=== PATIENT | male | born 1965 | race Caucasian/White ===

== ENCOUNTER 2017-11-26 11:30 | Emergency (ER) | payer SELFPAY ==
[2017-11-26 11:50] VITALS: BP 151/98
--- NOTE | 2017-11-26 12:06 | UC ---
UC General HPI - HPI Summary HPI Summary: Patient urgent care today, requesting Ultram and gabapentin refilled. Patient states he just got back from [place] and he needed his medications patient states that he call Dr. Roper's AND "they couldn't get him in for a while.' and they advised him to come here to the urgent care. Patient I-stopped and found to have an Rx yesterday of Klonopin 1 mg, 90 tablets dispensed.. 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 - History of Current Complaint Chief Complaint: UCBackPain Stated Complaint: BACK PAIN Time Seen by Provider: 11/26/17 11:52 Hx Obtained From: Patient Onset/Duration: Other - chronic pain Timing: Constant Pain Intensity: 9 Pain Location at: low back Pain Radiates to: no - Allergy/Home Medications Allergies/Adverse Reactions: Allergies Allergy/AdvReac Type Severity Reaction Status Date / Time No Known Allergies Allergy Verified 11/26/17 11:51 PMH/Surg Hx/FS Hx/Imm Hx Previously Healthy: No - chronic pain Psychological History: Anxiety Other History Of: Negative For: HIV, Hepatitis B, Hepatitis C, Anticoagulant Therapy - Surgical History Surgical History: Yes Surgery Procedure, Year, and Place: HERNIA REPAIR 10 YEARS AGO - Family History Known Family History: Positive: None, Cardiac Disease - Mother, Other - Lung cancer (father) Negative: Seizure Disorder, Blood Disorder Family History: NON CONTRIBUTORY - Social History Occupation: Unemployed Lives: Alone Alcohol Use: Occasionally Substance Use Type: Marijuana Smoking Status (MU): Former Smoker Type: Cigarettes Amount Used/How Often: quit jun 2015 Household Exposure Type: Cigarettes Review of Systems Constitutional: Negative Skin: Negative Eyes: Negative ENT: Negative Respiratory: Negative Cardiovascular: Negative Gastrointestinal: Negative Genitourinary: Negative Motor: Negative Neurovascular: Negative Musculoskeletal: Arthralgia - low back, Myalgia - low back Neurological: Negative Psychological: Negative Is Patient Immunocompromised?: No All Other Systems Reviewed And Are Negative: Yes Physical Exam Triage Information Reviewed: Yes Appearance: Well-Appearing, No Pain Distress, Well-Nourished Vital Signs: Initial Vital Signs Temp 98.2 F 11/26/17 11:46 Pulse 107 11/26/17 11:46 Resp 18 11/26/17 11:46 BP 151/98 11/26/17 11:46 Pulse Ox 100 11/26/17 11:46 Vital Signs Reviewed: Yes Eye Exam: Normal Eyes: Positive: Conjunctiva Clear ENT Exam: Normal ENT: Positive: Normal ENT inspection, Hearing grossly normal. Negative: Nasal congestion, Nasal drainage, Trismus, Muffled voice, Hoarse voice Dental Exam: Normal Neck exam: Normal Neck: Positive: Supple, Nontender, No Lymphadenopathy Respiratory Exam: Normal Respiratory: Positive: Chest non-tender, Lungs clear, Normal breath sounds, No respiratory distress, No accessory muscle use Cardiovascular Exam: Normal Cardiovascular: Positive: RRR, No Murmur, Pulses Normal, Brisk Capillary Refill Musculoskeletal Exam: Normal Musculoskeletal: Positive: Strength Intact, ROM Intact, No Edema - Family Neurological Exam: Normal Neurological: Positive: Alert, Muscle Tone Normal Psychological Exam: Normal Psychological: Positive: Normal Response To Family, Age Appropriate Behavior, Consolable Skin Exam: Normal Course/Dx - Course Course Of Treatment: Call made to Dr. Roper's office. Patient has an appointment for today at 1:30 so that one person can manage his chronic pain appropriately - Differential Dx - Multi-Symptom Provider Diagnoses: Chronic painchronic low back pain Discharge - Sign-Out/Discharge Documenting (check all that apply): Discharge/Admit/Transfer - Discharge Plan Condition: Stable Disposition: HOME Patient Education Materials: Chronic Back Pain (ED), Lower Back Exercises (ED) Referrals: Todd Bravo MD [Primary Care Provider] - 11/26/17 1:30 pm - Billing Disposition and Condition Condition: STABLE Disposition: Home
== END 2017-11-26 12:20 | disposition home or self-care (01) ==
LOC: UCEAST 11:30
DX: G89.29 Other chronic pain (principal); M54.5 Low back pain; F41.9 Anxiety disorder, unspecified; Z87.891 Personal history of nicotine dependence; Z82.49 Family history of ischemic heart disease and other diseases of the circulatory system; Z80.1 Family history of malignant neoplasm of trachea, bronchus and lung
CPT/HCPCS: 99211; G0463

== ENCOUNTER 2018-03-19 14:01 | Emergency (ER) | payer MEDICAID ==
--- NOTE | 2018-03-19 14:50 | UC ---
Respiratory Complaint HPI - History of Current Complaint Chief Complaint: EDUpperRespComplaint Stated Complaint: COUGH/ANXIETY Time Seen by Provider: 03/19/18 14:36 Hx Obtained From: Patient Pain Intensity: 1 - Allergies/Home Medications Allergies/Adverse Reactions: Allergies Allergy/AdvReac Type Severity Reaction Status Date / Time No Known Allergies Allergy Verified 11/26/17 11:51 Home Medications: Home Medications Escitalopram (NF) [Lexapro 10 mg (NF)] 10 mg PO DAILY 03/19/18 [History Confirmed 03/19/18] PMH/Surg Hx/FS Hx/Imm Hx Other History Of: Negative For: HIV, Hepatitis B, Hepatitis C, Anticoagulant Therapy - Surgical History Surgical History: Yes Surgery Procedure, Year, and Place: HERNIA REPAIR 10 YEARS AGO - Family History Known Family History: Positive: None, Cardiac Disease - Mother, Other - Lung cancer (father) Negative: Seizure Disorder, Blood Disorder Family History: NON CONTRIBUTORY - Social History Alcohol Use: Weekly Alcohol Amount: "couple of beer after work" Substance Use Type: None Smoking Status (MU): Light Every Day Tobacco Smoker Type: Cigarettes Amount Used/How Often: quit jun 2015 Household Exposure Type: Cigarettes Physical Exam Vital Signs: Initial Vital Signs Temp 97.6 F 03/19/18 14:08 Pulse 89 03/19/18 14:08 Resp 19 03/19/18 14:08 BP 162/100 03/19/18 14:08 Pulse Ox 99 03/19/18 14:08 Diagnostic Evaluation - Laboratory O2 Sat by Pulse Oximetry: 99 Discharge - Discharge Plan Referrals: Todd Bravo MD [Primary Care Provider] -
--- NOTE | 2018-03-19 15:27 | RAD ---
HISTORY: cough, fever COMPARISONS: May 03, 2016 VIEWS: 4: Frontal dual-energy and lateral views of the chest. FINDINGS: CARDIOMEDIASTINAL SILHOUETTE: The cardiomediastinal silhouette is normal. PHU: The phu are normal. PLEURA: The costophrenic angles are sharp. No pleural abnormalities are noted. LUNG PARENCHYMA: The lungs are clear. ABDOMEN: The upper abdomen is clear. There is no subphrenic gas. BONES AND SOFT TISSUES: There are remote posttraumatic deformities of the left lower hemithorax. Mild degenerative changes are noted. OTHER: None. IMPRESSION: NO ACTIVE CARDIOPULMONARY DISEASE.
--- OUTSIDE RECORDS SUMMARY | 2018-03-19 15:48 | XMS REPORT ---
:1965 External Reference #:[id number] Author Organization [facility] Address [address] [facility] [address] [place] [address] [place] [address] Phone [phone] Care Team Providers Name Role Phone Todd Bravo MD Primary Care Physician Unavailable Payers Type Date Identification Numbers Payment Provider Subscriber Medicaid Policy Number: [id number] Medicaid Serge Savage Group Name: 1 1 [address] PayID: [id number] [place] [address] Commercial Effective: Policy Number: [place]/[employer] Medicaid Serge Lecek 2013 [id number] Expires: 2017 Group Name: [id number] [address] [address] PayID: [id number] [place] [address] Commercial Effective: Policy Number: [place]/[employer] Medicaid Serge Lecek 2008 [id number] Expires: 2013 PayID: [id number] [address] [address] [place] [address] Workers Compensation Onset: 2014 Policy Number: State Insurance Serge Savage [id number] [facility] PayID: [id number] [address] [address] [place] [address] Problems Date Description Provider Status Onset: 07/20/2014 Chronic low back pain Carri Davis M.D.,FACP Onset: 2015 Sprain of shoulder and upper arm Reginald Cotton M.D. Active Onset: 03/04/2015 Localized, primary Diana Mahmood M.D. Active osteoarthritis of the shoulder region Onset: 03/06/2016 Anxiety disorder Carri Davis M.D.,FACP Onset: 05/11/2016 Ex-smoker Todd Bravo, Active Delphine,FACP Onset: 01/03/2018 Lumbar radiculopathy Hai Tilley M.D. Active Onset: 03/16/2013 Benign essential hypertension Todd Bravo, Inactive Delphine,FACP Inactive: 07/20/2014 Onset: 03/16/2013 Pathological fracture of Todd Bravo, Inactive vertebra M.Delia,FACP Inactive: 05/03/2015 Onset: 09/17/2013 Light cigarette smoker (1-9 Todd Bravo M.D.,FACP Inactive cigs/day) Inactive: 05/11/2016 Onset: 11/11/2014 Closed fracture of two ribs Hai Tilley M.D. Resolved Resolved: 05/03/2015 Family History Date Family Member(s) Problem(s) Comments General Heart Disease Father due to Cancer, Lung () Siblings 1 Social History Type Date Description Comments Marital Status Occupation Disabled Environmental Hazards Negative For Second hand smoke at home Cigarette Use Former Cigarette Smoker quit 06/24/15 ETOH Use 04/17/2015 Consumes 2 beers per day Recreational Drug Use Sporadically uses Marijuana Smoking Light tobacco smoker (10 or fewer cigarettes/day) Exercise Type/Frequency Exercises regularly General Hx Text 1 daughter originally from [facility] Allergies, Adverse Reactions, Alerts Date Description Reaction Status Severity Comments 02/20/2018 Sertraline active intolerant 02/20/2018 Tramadol active seizure 03/16/2013 NKDA inactive Medications Medication Date Status Form Strength Qnty SIG Indications Ordering Provider Lexapro 02/20 Active Tablets 10mg 30tab 1 by mouth Todd s every day Delia Bravo M.D.,FACP Hydrocodone 02/20 Active Tablets 5-325mg 60tab 1 by mouth Todd Bitartrate/Acetam s three times Delia Bravo inophen a day as MGibran,FACRonny needed Baclofen 12/27 Active Tablets 10mg 30tab take 1 M54.16 Hai s tablets by Nasrinra mouth twice , M.D. a day Naproxen 08/23 Active Tablets 500mg 42tab 1 by mouth M65.872 s twice a day Jose Miguel, as needed M.D. Xanax 05/11 Active Tablets 0.5mg 20tab 1 tab 12 h F43.22 s as needed Delia Bravo M.D.,[facility] Viagra 05/03 Active Tablets 50mg 7tabs 1 by mouth N52.1 as needed Delia Bravo M.D.,[facility] Triamcinolone 12/30 Active Cream 0.5% 15g to affected area every D. Shelly, day as M.DEwelina,[facility] needed Gabapentin 03/16 Active Capsules 300mg 180ca take two ps capsules by Delia Bravo, mouth three M.D.,FACP times daily Hydrocodone-Aceta 08/09 Hx Tablets 5-325mg 20tab 1-2 by mouth M67.472 Todd s every 6 D. Shelly, - hours prn. [facility] 10/11 Tylenol With 07/31 Hx Tablets 300-30mg 8tabs 1 tab by M79.672 Manjinder Codeine #3 mouth every Jose Miguel, - 4 hours as M.DEwelina 08/09 needed pain Hydrocodone-Aceta 07/25 Hx Tablets 7.5-325mg 30tab 1 tab by S22.49xA Todd s mouth q6 DEwelina Bravo, - hours as [facility]ina[facility] 08/09 needed pain Sertraline HCL 03/06 Hx Tablets 50mg 30tab 1/2 tab F43.22 s daily for 10 D. Shelly, - days then 1 M.D.,FACP 03/27 by mouth every day Lexapro 01/22 Hx Tablets 20mg 30tab 1 by mouth F43.22 Aric s every day [place], - [employer] 03/06 Xanax 01/22 Hx Tablets 0.25mg 30tab take 1 F43.22 s tablet by Delia Bravo, - mouth twice M.D.,FACP 05/11 a day only as needed; Lorazepam 11/08 Hx Tablets 1mg 10tab 1-2 tab at Unknown s hs as needed - for anxiety 01/22 Diazepam 07/05 Hx Tablets 10mg 10tab 1/2-1 tab po F43.22 s qd prn Willie Farrar M.D.,[facility] 01/22 Diazepam 05/03 Hx Tablets 10mg 10tab 1/2-1 tab po N52.1 s qd prWillie White M.D.,[facility] 07/05 Soma 03/04 Hx Tablets 250mg 40tab 1 tab q8 715.11 Diana s hours by Timoteo, - mouth as M.DEwelina 05/03 needed muscle spasms Skelaxin 02/22 Hx Tablets 800mg 45tab 1 tablet by 719.41 s mouth three [place], - times a day, M.DEwelina 05/03 as needed for muscle contraction Mobic 01/11 Hx Tablets 7.5mg 60tab 1 by mouth s twice a day Yury, - as needed, M.DEwelina 05/03 take with meals [place] 01/11 Hx Tablets 5-325mg 40tab 1-2 by mouth s daily as Yury, - needed M.DEwelina 05/03 Celecoxib 12/30 Hx Capsules 200mg 28cap 1 tab PO bid 840.8 s for 2 wks Delia Bravo, - (work MGibran,[facility] 01/11 injury) Azithromycin 11/11 Hx Tablets 250mg 6tabs 2 tab today 466.0 and then Pachikara - 1tab daily , M.DEwelina 12/29 Prednisone 11/11 Hx Tablets 10mg 30tab 5tabx 466.0 s 2days,4 Pachikara - [id number] , Delphine 12/29 [id number], [id number],1t abxday. Hydrocodone-Aceta 10/08 Hx Tablets 7.5-325mg 20tab 1 tab by 807.02 Weldon min s mouth q6 Pachikara - hours as , Delphine 12/29 needed pain Trazodone HCL 07/20 Hx Tablets 50mg 30tab Take One G47.00 s Tablet By Delia Bravo, - Mouth Every M.DEwelina,[facility] 03/06 Night AT Bedtime Tramadol HCL ER 02/12 Hx Tablets 100mg 90tab 1-2 tabs 724.2 Todd (Biphasic) ER 24HR s twice a day Willie Farrar M.D.,[facility] 07/20 Tramadol HCL 02/12 Hx Tablets 50mg 30tab 1-2 three M54.5 Todd s times a day Delia Bravo, - as needed M.Delia,[facility] 02/20 mdd Chantix Starting 09/17 Hx Tablets 0.5mg X 1mon as directed 780.52 Padma Post Month 11 & 1 mg Delia Bravo, - X 42 M.DEwelina,[facility] 07/20 Lisinopril-Hydroc 09/14 Hx Tablets 10-12.5mg 90tab 1 by mouth Padma Post hlorothiazide s every day Willie Farrar M.D.,[facility] 07/20 Oxycodone/Acetami 09/02 Hx Tablets 7.5-325mg 60tab 1 po qid prn 724.2 Todd nop s Willie Farrar M.D.,[facility] 09/17 Cyclobenzaprine 09/02 Hx Tablets 10mg 30tab take 1 724.2 Todd s tablet tid Delia Bravo, - as needed Delphine,[facility] 09/17 Vitamin D 04/17 Hx Capsules 1000Unit 30cap po qd 275.42 Todd Willie Castro M.D.,[facility] 11/10 Tylenol Extra 03/16 Hx Tablets 500mg 100ta 2 po prn Todd Strength bs Willie Farrar M.D.,[facility] 12/14 Hydrocodone/Aceta 03/16 Hx Tablets 5-325mg 70tab 1 tablet by 724.2 Zeferino upton s mouth four Heena, - times a day Delphine 08/22 as needed Lisinopril/Hydroc 03/16 Hx Tablets 10-12.5mg 30tab take 1 401.1 Padma Post hlorothiazide /2012 s tablet by Delia Bravo, - mouth every M.D.,FACP 09/14 morning Ibuprofen 03/16 Hx Tablets 400mg 100ta take one Todd bs tablet by Delia Bravo, - mouth four M.D.,FACP 07/20 times daily /2014 as needed Chlordiazepoxide Hx Capsules 25mg pt takes two Unknown HCL /0000 tabs in am - and two tabs 09/11 in pm Medications Administered in Office Medication Date Status Form Strength Qnty SIG Indications Ordering Provider Depomedrol Administered Injection Diana 80MG 015 Delphine Mahmood Immunizations CPT Code Status Date Vaccine Lot # [id number] Given 03/16/2013 Flu Vaccine Split Virus Preservative Free For [id number] Indiv [id number] Older Vital Signs Date Vital Result Comment 02/20/2018 Height 68 inches 5'8" Weight 135.00 lb Heart Rate 85 /min BP Systolic Sitting 160 mmHg BP Diastolic Sitting 90 mmHg Body Temperature 97.3 F O2 % BldC Oximetry 98 % BMI (Body Mass Index) 20.5 kg/m2 01/03/2018 Height 68 inches 5'8" Weight 142.00 lb Heart Rate 74 /min BP Systolic Sitting 138 mmHg BP Diastolic Sitting 72 mmHg Body Temperature 96.6 F O2 % BldC Oximetry 98 % BMI (Body Mass Index) 21.6 kg/m2 12/27/2017 Height 68 inches 5'8" Weight 148.19 lb Heart Rate 70 /min BP Systolic Sitting 142 mmHg BP Diastolic Sitting 90 mmHg O2 % BldC Oximetry 99 % BMI (Body Mass Index) 22.5 kg/m2 11/26/2017 Height 68 inches 5'8" Weight 148.00 lb Heart Rate 92 /min BP Systolic Sitting 140 mmHg BP Diastolic Sitting 90 mmHg Body Temperature 97.8 F O2 % BldC Oximetry 98 % BMI (Body Mass Index) 22.5 kg/m2 09/11/2016 Weight 161.75 lb Heart Rate 76 /min BP Systolic Sitting 134 mmHg BP Diastolic Sitting 80 mmHg Body Temperature 97.9 F O2 % BldC Oximetry 98 % 08/23/2016 Height 67 inches 5'7" Weight 159.00 lb Heart Rate 82 /min BP Systolic 126 mmHg BP Diastolic 88 mmHg Respiratory Rate 19 /min Pain Level 9 BMI (Body Mass Index) 24.9 kg/m2 07/31/2016 Height 67 inches 5'7" Weight 159.00 lb Heart Rate 80 /min BP Systolic 119 mmHg BP Diastolic 90 mmHg Respiratory Rate 18 /min Pain Level 10 BMI (Body Mass Index) 24.9 kg/m2 07/25/2016 Weight 160.50 lb Heart Rate 66 /min BP Systolic Sitting 134 mmHg BP Diastolic Sitting 80 mmHg Body Temperature 98.1 F O2 % BldC Oximetry 99 % 05/11/2016 Height 56 inches 4'8" Weight 155.50 lb Heart Rate 102 /min BP Systolic Sitting 138 mmHg BP Diastolic Sitting 81 mmHg Body Temperature 97.3 F O2 % BldC Oximetry 98 % BMI (Body Mass Index) 34.9 kg/m2 04/10/2016 Weight 149.00 lb with shoes Heart Rate 75 /min BP Systolic Sitting 130 mmHg BP Diastolic Sitting 90 mmHg O2 % BldC Oximetry 98 % 03/27/2016 Weight 150.00 lb Heart Rate 86 /min BP Systolic Sitting 150 mmHg BP Diastolic Sitting 90 mmHg Respiratory Rate 15 /min Body Temperature 98.4 F O2 % BldC Oximetry 99 % 03/06/2016 Weight 148.00 lb Heart Rate 76 /min BP Systolic Sitting 150 mmHg BP Diastolic Sitting 88 mmHg Respiratory Rate 15 /min Body Temperature 98.3 F O2 % BldC Oximetry 98 % 01/23/2016 Height 56 inches 4'8" Weight 146.00 lb Heart Rate 101 /min BP Systolic 146 mmHg BP Diastolic 82 mmHg Body Temperature 97.9 F O2 % BldC Oximetry 99 % BMI (Body Mass Index) 32.7 kg/m2 07/05/2015 Height 56 inches 4'8" Weight 149.00 lb Heart Rate 81 /min BP Systolic 134 mmHg BP Diastolic 90 mmHg Body Temperature 97.6 F O2 % BldC Oximetry 99 % BMI (Body Mass Index) 33.4 kg/m2 05/03/2015 Weight 155.00 lb Heart Rate 77 /min BP Systolic Sitting 136 mmHg BP Diastolic Sitting 90 mmHg Body Temperature 96.4 F 03/04/2015 Height 66.5 inches 5'6.50" Weight 160.00 lb Pain Level 7 BMI (Body Mass Index) 25.4 kg/m2 02/22/2015 Height 66.5 inches 5'6.50" Weight 189.12 lb Heart Rate 91 /min BP Systolic Sitting 130 mmHg BP Diastolic Sitting 82 mmHg Body Temperature 97.7 F O2 % BldC Oximetry 98 % BMI (Body Mass Index) 30.1 kg/m2 2015 Height 66.5 inches 5'6.50" Weight 164.00 lb Heart Rate 93 /min BP Systolic Sitting 137 mmHg BP Diastolic Sitting 96 mmHg Respiratory Rate 18 /min Pain Level 9 BMI (Body Mass Index) 26.1 kg/m2 12/30/2014 Height 66.5 inches 5'6.50" Weight 164.12 lb Heart Rate 100 /min BP Systolic Sitting 118 mmHg BP Diastolic Sitting 62 mmHg Body Temperature 97.8 F O2 % BldC Oximetry 98 % BMI (Body Mass Index) 26.1 kg/m2 11/11/2014 Weight 155.00 lb Heart Rate 86 /min BP Systolic Sitting 130 mmHg BP Diastolic Sitting 92 mmHg Body Temperature 97.8 F O2 % BldC Oximetry 98 % 10/08/2014 Weight 156.00 lb Heart Rate 94 /min BP Systolic Sitting 148 mmHg BP Diastolic Sitting 94 mmHg Body Temperature 97.4 F O2 % BldC Oximetry 99 % 07/20/2014 Weight 165.75 lb Heart Rate 96 /min BP Systolic Sitting 126 mmHg BP Diastolic Sitting 88 mmHg Body Temperature 97.8 F 02/12/2014 Weight 172.00 lb Heart Rate 56 /min BP Systolic Sitting 120 mmHg BP Diastolic Sitting 82 mmHg Body Temperature 96.0 F 12/14/2013 Height 66.5 inches 5'6.50" Weight 165.00 lb Heart Rate 88 /min BP Systolic Sitting 134 mmHg BP Diastolic Sitting 86 mmHg Body Temperature 98.2 F BMI (Body Mass Index) 26.2 kg/m2 09/17/2013 Height 6.5 inches 0'6.50" Weight 165.50 lb Heart Rate 68 /min BP Systolic Sitting 100 mmHg BP Diastolic Sitting 60 mmHg Body Temperature 98.0 F BMI (Body Mass Index) 2753.8 kg/m2 09/02/2013 Weight 168.00 lb Heart Rate 76 /min BP Systolic Sitting 112 mmHg BP Diastolic Sitting 72 mmHg Body Temperature 97.6 F 04/17/2013 Weight 164.00 lb Heart Rate 100 /min BP Systolic Sitting 124 mmHg BP Diastolic Sitting 78 mmHg 03/16/2013 Height 66.25 inches 5'6.25" Weight 156.50 lb Heart Rate 110 /min BP Systolic Sitting 152 mmHg BP Diastolic Sitting 92 mmHg BMI (Body Mass Index) 25.1 kg/m2 Results Test Date Test Result H/L Range Note Lipid Profile (Trig/Chol/HDL) 02/17/2018 Triglycerides 86 mg/dL 1 Cholesterol 191 mg/dL 2 HDL Cholesterol 81.9 mg/dL 3 LDL Cholesterol 92 mg/dL 4 Basic Metabolic Panel 02/17/2018 Sodium 137 mmol/L 135-145 Potassium 4.3 mmol/L 3.5-5.0 Chloride 107 mmol/L 101-111 Co2 Carbon Dioxide 25 mmol/L 22-32 Anion Gap 5 mmol/L 2-11 Glucose 94 mg/dL 70-100 Blood Urea Nitrogen 14 mg/dL 6-24 Creatinine 0.91 mg/dL 0.67-1.17 BUN/Creatinine Ratio 15.4 8-20 Calcium 9.3 mg/dL 8.6-10.3 Egfr Non- 87.2 >60 Egfr 105.5 >60 5 CBC Auto Diff 01/23/2016 White Blood Count 7.2 10^3/uL 3.5-10.8 Red Blood Count 5.15 10^6/uL 4.0-5.4 Hemoglobin 15.3 g/dL 14.0-18.0 Hematocrit 44 % 42-52 Mean Corpuscular Volume 86 fL 80-94 Mean Corpuscular Hemoglobin 30 pg 27-31 Mean Corpuscular HGB Conc 35 g/dL 31-36 Red Cell Distribution Width 14 % 10.5-15 Platelet Count 209 10^3/uL 150-450 Mean Platelet Volume 8 um3 7.4-10.4 Abs Neutrophils 5.5 10^3/uL 1.5-7.7 Abs Lymphocytes 1.2 10^3/uL 1.0-4.8 Abs Monocytes 0.4 10^3/uL 0-0.8 Abs Eosinophils 0.1 10^3/uL 0-0.6 Abs Basophils 0.1 10^3/uL 0-0.2 Abs Nucleated RBC 0.02 10^3/uL Granulocyte % 75.7 % 38-83 Lymphocyte % 17.2 % Low 25-47 Monocyte % 5.1 % 1-9 Eosinophil % 1.0 % 0-6 Basophil % 1.0 % 0-2 Nucleated Red Blood Cells % 0.3 Urinalysis Profile 01/23/2016 Urine Color Yellow Urine Appearance Clear Urine Specific [place] 1.015 1.010-1.030 Urine pH 7.0 5-9 Urine Urobilinogen Negative Negative Urine Ketones 1+ Negative Urine Protein Negative Negative Urine Leukocytes Negative Negative Urine Blood Negative Negative Urine Nitrite Negative Negative Urine Bilirubin Negative Negative Urine Glucose Negative Negative Urine Drug SCR ED & 01/23/2016 Amphetamine Ur Screen None Detected None Detect Pain Clinic Barbiturates Urine Screen None Detected None Detect Benzodiazepine Urine Screen Presumptive Posi <SEE NOTE> None Detect 6 Urine Cannabinoids Screen Presumptive Posi <SEE NOTE> None Detect 7 Urine Cocaine Screen None Detected None Detect Urine Opiates Screen None Detected None Detect Urine Phencyclidine Screen None Detected None Detect 8 Comp Metabolic Panel 01/23/2016 Sodium 136 mmol/L 133-145 Potassium 3.8 mmol/L 3.5-5.0 Chloride 104 mmol/L 101-111 Co2 Carbon Dioxide 20 mmol/L Low 22-32 Anion Gap 12 mmol/L High 2-11 Glucose 94 mg/dL 70-100 Blood Urea Nitrogen 13 mg/dL 6-24 Creatinine 0.93 mg/dL 0.67-1.17 BUN/Creatinine Ratio 14.0 8-20 Calcium 9.3 mg/dL 8.6-10.3 Total Protein 7.4 g/dL 6.4-8.9 Albumin 4.2 g/dL 3.2-5.2 Globulin 3.2 g/dL 2-4 Albumin/Globulin Ratio 1.3 1-3 Total Bilirubin 1.00 mg/dL 0.2-1.0 Alkaline Phosphatase 62 U/L 34-104 Alt 24 U/L 7-52 Ast 31 U/L 13-39 Egfr Non- 85.7 >60 Egfr 110.2 >60 9 Laboratory test finding 01/23/2016 Troponin-I (TnI) 0.00 ng/mL <0.03 10 Acetaminophen < 15 g/mL 11 Alcohol < 10 mg/dL <10 Salicylate < 2.50 mg/dL <30 TSH (Thyroid Stim Horm) 0.52 mcIU/mL 0.34-5.60 Urine Drug SCR ED & 01/22/2016 Amphetamine Ur Screen None Detected None Detect Pain Clinic Barbiturates Urine Screen None Detected None Detect Benzodiazepine Urine Screen None Detected None Detect Urine Cannabinoids Screen Presumptive Posi <SEE NOTE> None Detect 12 Urine Cocaine Screen None Detected None Detect Urine Opiates Screen None Detected None Detect Urine Phencyclidine Screen None Detected None Detect 13 Urinalysis Profile 01/22/2016 Urine Color Yellow Urine Appearance Clear Urine Specific [place] 1.016 1.010-1.030 Urine pH 5.0 5-9 Urine Urobilinogen Negative Negative Urine Ketones Negative Negative Urine Protein Negative Negative Urine Leukocytes Negative Negative Urine Blood Negative Negative Urine Nitrite Negative Negative Urine Bilirubin Negative Negative Urine Glucose Negative Negative Laboratory test finding 08/27/2015 Rapid Influenza A B SEE RESULT BELOW 14 Antigen Rapid Strep A SEE RESULT BELOW 15 Rapid Influenza A & B 08/27/2015 Influenza A Molecular POSITIVE Negative 16 Molecular Influenza B Molecular NEGATIVE Negative Laboratory test finding 08/27/2015 Rapid Strep Molecular Negative Negative 17 Throat-Beta Strept SEE RESULT BELOW 18 CBC Auto Diff 02/25/2015 White Blood Count 6.3 10^3/uL 4.8-10.8 Red Blood Count 4.65 10^6/uL 4.0-5.4 Hemoglobin 13.5 g/dL Low 14.0-18.0 Hematocrit 40 % Low 42-52 Mean Corpuscular Volume 86 fL 80-94 Mean Corpuscular Hemoglobin 29 pg 27-31 Mean Corpuscular HGB Conc 34 g/dL 31-36 Red Cell Distribution Width 13 % 10.5-15 Platelet Count 200 10^3/uL 150-450 Mean Platelet Volume 8 um3 7.4-10.4 Abs Neutrophils 4.6 10^3/uL 1.5-7.7 Abs Lymphocytes 1.2 10^3/uL 1.0-4.8 Abs Monocytes 0.3 10^3/uL 0-0.8 Abs Eosinophils 0.1 10^3/uL 0-0.6 Abs Basophils 0.1 10^3/uL 0-0.2 Abs Nucleated RBC 0 10^3/uL Granulocyte % 73.4 % 38-83 Lymphocyte % 19.0 % Low 25-47 Monocyte % 5.1 % 1-9 Eosinophil % 1.5 % 0-6 Basophil % 1.0 % 0-2 Nucleated Red Blood Cells % 0 Urinalysis Profile 02/25/2015 Urine Color Yellow Urine Appearance Clear Urine Specific Comstock 1.012 1.010-1.030 Urine pH 7.0 5-9 Urine Urobilinogen Negative Negative Urine Ketones Negative Negative Urine Protein Negative Negative Urine Leukocytes Negative Negative Urine Blood Negative Negative Urine Nitrite Negative Negative Urine Bilirubin Negative Negative Urine Glucose Negative Negative Laboratory test finding 02/25/2015 Lactic Acid 0.9 mmol/L 0.5-2.2 Troponin-I (TnI) 0.00 ng/mL <0.03 19 TSH (Thyroid Stim Horm) 0.41 ?IU/mL 0.34-5.60 Comp Metabolic Panel 02/25/2015 Sodium 130 mmol/L Low 133-145 Potassium 3.8 mmol/L 3.5-5.0 Chloride 98 mmol/L Low 101-111 Glucose 120 mg/dL High 70-100 Blood Urea Nitrogen 16 mg/dL 6-24 Calcium 9.1 mg/dL 8.6-10.3 Total Protein 6.6 g/dL 6.4-8.9 Albumin 4.2 g/dL 3.2-5.2 Globulin 2.4 g/dL 2-4 Albumin/Globulin Ratio 1.8 1-3 Total Bilirubin 0.50 mg/dL 0.2-1.0 Alkaline Phosphatase 70 U/L 34-104 Alt 27 U/L 7-52 Ast 33 U/L 13-39 Co2 Carbon Dioxide 26 mmol/L 22-32 Anion Gap 6 mmol/L 2-11 Creatinine 1.11 mg/dL 0.67-1.17 BUN/Creatinine Ratio 14.4 8-20 Egfr Non- 70.1 >60 Egfr 90.2 >60 20 Laboratory test finding 02/25/2015 Magnesium 2.1 mg/dL 1.9-2.7 Laboratory test finding 03/24/2013 PSA Diagnostic 0.4 ng/mL 0-4.0 21 Basic Metabolic Panel 03/24/2013 Sodium 134 mmol/L 133-145 Potassium 3.8 mmol/L 3.5-5.0 Chloride 105 mmol/L 101-111 Co2 Carbon Dioxide 20.0 mmol/L Low 22-32 Anion Gap 9.0 mmol/L 2-11 Glucose 80 mg/dL 70-100 Blood Urea Nitrogen 15 mg/dL 6-24 Creatinine 1.10 mg/dL 0.50-1.40 BUN/Creatinine Ratio 13.6 8-20 Calcium 10.0 mg/dL High 8.1-9.9 Egfr Non- 71.4 >60 Egfr 91.9 >60 22 Laboratory test finding 03/24/2013 Erythrocyte Sed Rate 8 mm/Hr 0-14 CBC Auto Diff 03/24/2013 White Blood Count 7.8 10^3/uL 4.8-10.8 Red Blood Count 4.89 10^6/uL 4.0-5.4 Hemoglobin 14.3 g/dL 14.0-18.0 Hematocrit 44 % 42-52 Mean Corpuscular Volume 89 fL 80-94 Mean Corpuscular Hemoglobin 29 pg 27-31 Mean Corpuscular HGB Conc 33 g/dL 31-36 Red Cell Distribution Width 13 % 10.5-15 Platelet Count 210 10^3/uL 150-450 Mean Platelet Volume 10 um3 7.4-10.4 Abs Neutrophils 4.6 10^3/uL 1.5-7.7 Abs Lymphocytes 2.3 10^3/uL 1.0-4.8 Abs Monocytes 0.5 10^3/uL 0-0.8 Abs Eosinophils 0.2 10^3/uL 0-0.6 Abs Basophils 0.1 10^3/uL 0-0.2 Abs Nucleated RBC 0.01 10^3/uL Granulocyte % 59.8 % 38-83 Lymphocyte % 29.3 % 25-47 Monocyte % 6.4 % 1-9 Eosinophil % 3.2 % 0-6 Basophil % 1.3 % 0-2 Nucleated Red Blood Cells % 0.1 Laboratory test finding 03/24/2013 TSH (Thyroid Stimulating 0.39 miu/mL 0.34-5.60 Horm) Testosterone 290.0 ng/dL 175-781 Protein Electrophoresis 03/24/2013 Total Protein(Pep) 7.7 g/dL 6.3 - 7.9 Albumin 4.2 g/dL 3.4-4.7 Alpha-1 Globulin 0.2 g/dL 0.1-0.3 Alpha-2 Globulin 1.0 g/dL 0.6-1.0 Beta Globulin 1.2 g/dL 0.7-1.2 Gamma Globulin 1.1 g/dL 0.6-1.6 Albumin/Globulin Ratio 1.19 Impression See Comment 23 1 Desirable: <150 Borderline High: 150-199 High: 200-499 Very High: >500 2 Desirable: <200 Borderline High: 200-239 High: >239 3 Low: <40 Desirable: 40-60 High: >60 4 Desirable: <100 Near Optimal: 100-129 Borderline High: 130-159 High: 160-189 Very High: >189 5 Because ethnic data is not always readily available, this report includes an eGFR for both -Americans and non- Americans. The National Kidney Disease Education Program (NKDEP) does not endorse the use of the MDRD equation for patients that are not between the ages of 18 and 70, are , have extremes of body size, muscle mass, or nutritional status, or are non- or non-. According to the National Kidney Foundation, irrespective of diagnosis, the stage of the disease is based on the level of kidney function: Stage Description GFR(mL/min/1.73 m(2)) 1 Kidney damage with normal or decreased GFR 90 2 Kidney damage with mild decrease in GFR 60-89 3 Moderate decrease in GFR 30-59 4 Severe decrease in GFR 15-29 5 Kidney failure <15 (or dialysis) 6 Presumptive Positive Presumptive positive results are unconfirmed. 7 Presumptive Positive Presumptive positive results are unconfirmed. 8 The urine specimen was tested at the listed cutoffs: Drug class test level (ng/mL) Amphetamines 500 Barbiturates 200 Benzodiazepine metabolites 200 Cocaine metabolites 150 Cannabinoids 50 Opiates 300 Pcp 25 Specimen was received without chain of custody. Results should be used for medical purposes only. 9 Because ethnic data is not always readily available, this report includes an eGFR for both -Americans and non- Americans. The National Kidney Disease Education Program (NKDEP) does not endorse the use of the MDRD equation for patients that are not between the ages of 18 and 70, are , have extremes of body size, muscle mass, or nutritional status, or are non- or non-. According to the National Kidney Foundation, irrespective of diagnosis, the stage of the disease is based on the level of kidney function: Stage Description GFR(mL/min/1.73 m(2)) 1 Kidney damage with normal or decreased GFR 90 2 Kidney damage with mild decrease in GFR 60-89 3 Moderate decrease in GFR 30-59 4 Severe decrease in GFR 15-29 5 Kidney failure <15 (or dialysis) 10 Reference Range and Interpretation: TnI (ng/mL) Interpretation Less Than 0.03 ng/mL Not supportive of diagnosis of CO 0.03 - 0.50 ng/mL Indeterminate: suggest serial studies if clinically indicated. Greater than 0.5 ng/mL Consistent with diagnosis of CO 11 Therapeutic concentration: <50 ug/mL Toxic concentration: >120 ug/mL 12 Presumptive Positive Presumptive positive results are unconfirmed. 13 The urine specimen was tested at the listed cutoffs: Drug class test level (ng/mL) Amphetamines 500 Barbiturates 200 Benzodiazepine metabolites 200 Cocaine metabolites 150 Cannabinoids 50 Opiates 300 Pcp 25 Specimen was received without chain of custody. Results should be used for medical purposes only. 14 SEE RESULT BELOW Name: SERGE SAVAGE : [address]: Dia Vu MD Acct: [id number] Unit: [id number] AGE: 50 Location: ED Re08/27/15 SEX: M Status: REG ER SPEC: [id number] IVONNE: 08/27/15 [facility] [address]: Israel ROGERS REQ: [id number] RECD: 08/27/15 STATUS: DARIEN SINGER DR: Todd Vu MD _ SOURCE: NASAL SPDESC: ORDERED: Flu A B Request Procedure Result Reported Site Rapid Influenza A B Request Final 08/27/15- 1625 ML Specimen received for Influenza A/B Molecular testing * ML - MAIN LAB ([facility]) . END OF REPORT * ML=Testing performed at Main Lab DEPARTMENT OF PATHOLOGY, [address] [place] [address] Tramaine Epstein M.D. Director [facility] # [id number] 15 SEE RESULT BELOW Name: SERGE SAVAGE : [address]: Dia Vu MD Acct: [id number] Unit: [id number] AGE: 50 Location: ED Re08/27/15 SEX: M Status: REG ER SPEC: [id number] IVONNE: 08/27/15 [facility] [address]: Israel ROGERS REQ: [id number] RECD: 08/27/15 STATUS: DARIEN SINGER DR: Todd Vu MD _ SOURCE: THROAT SPDESC: ORDERED: Strep A Request Procedure Result Reported Site Rapid Strep A Request Final 08/27/15- 1655 ML Specimen received for Rapid Strep A Molecular testing * ML - MAIN LAB ([facility]) . END OF REPORT * ML=Testing performed at Main Lab DEPARTMENT OF PATHOLOGY, [address] [place] [address] Tramaine Epstein M.D. Director [facility] # [id number] 16 Embroidery Designer: [id number] GUILLERMO BERGER 17 Embroidery Designer: [id number] JASON ALVAREZ The die finisher and regulatory agencies both recommend that a throat culture for beta strep be performed if a Rapid Group A Strep assay yields a negative result. Therefore a culture will be automatically performed on all negative samples. 18 SEE RESULT BELOW Name: SERGE SAVAGE : [address]: Dia Vu MD Acct: [id number] Unit: [id number] AGE: 50 Location: ED Re08/27/15 SEX: M Status: DEP ER SPEC: [id number] IVONNE: 08/27/15 [facility] [address]: Dia Vu MD REQ: [id number] RECD: 08/27/15 STATUS: DARIEN SINGER DR: Todd Bravo MD _ SOURCE: THROAT SPDESC: ORDERED: Throat Beta Str Procedure Result Reported Site Throat Beta Strep Culture Final 08/29/15- 955 ML Negative For Group A Beta Streptococcus * ML - MAIN LAB ([facility]) . END OF REPORT * ML=Testing performed at Main Lab DEPARTMENT OF PATHOLOGY, [address] [place] [address] Tramaine Epstein M.D. Director [facility] # [id number] 19 Reference Range and Interpretation: TnI (ng/mL) Interpretation Less Than 0.03 ng/mL Not supportive of diagnosis of CO 0.03 - 0.50 ng/mL Indeterminate: suggest serial studies if clinically indicated. Greater than 0.5 ng/mL Consistent with diagnosis of CO 20 Because ethnic data is not always readily available, this report includes an eGFR for both -Americans and non- Americans. The National Kidney Disease Education Program (NKDEP) does not endorse the use of the MDRD equation for patients that are not between the ages of 18 and 70, are , have extremes of body size, muscle mass, or nutritional status, or are non- or non-. According to the National Kidney Foundation, irrespective of diagnosis, the stage of the disease is based on the level of kidney function: Stage Description GFR(mL/min/1.73 m(2)) 1 Kidney damage with normal or decreased GFR 90 2 Kidney damage with mild decrease in GFR 60-89 3 Moderate decrease in GFR 30-59 4 Severe decrease in GFR 15-29 5 Kidney failure <15 (or dialysis) 21 Serum levels of PSA measured using the [employer] DXI Hybritech immunoassay should not be interpreted as absolute evidence of the presence or absence of disease. The PSA value should be used in conjunction with other pertinent clinical diagnostic procedures. A PSA value in the range of 0.1 to 0.6 ng/ml is indeterminate if being used as an indicator of recurrent or residual disease. The values obtained with different assay methods or kits cannot be used interchangeably. 22 Because ethnic data is not always readily available, this report includes an eGFR for both -Americans and non- Americans. The National Kidney Disease Education Program (NKDEP) does not endorse the use of the MDRD equation for patients that are not between the ages of 18 and 70, are , have extremes of body size, muscle mass, or nutritional status, or are non- or non-. According to the National Kidney Foundation, irrespective of diagnosis, the stage of the disease is based on the level of kidney function: Stage Description GFR(mL/min/1.73 m(2)) 1 Kidney damage with normal or decreased GFR 90 2 Kidney damage with mild decrease in GFR 60-89 3 Moderate decrease in GFR 30-59 4 Severe decrease in GFR 15-29 5 Kidney failure <15 (or dialysis) 23 RESULT: No apparent monoclonal protein on serum electrophoresis. Test Performed by: [place] [address] As400 Developer: Daron Yung III, M.D. Procedures Date CPT Code Description Status 05/03/2016 03458 EEG Recording Awake & Drowsy Completed 03/04/2015 20727 Inject/Drain Joint/Bursa Major W/O US Completed 04/28/2013 Bone Mineral Density Test Completed 10/30/2009 92219 Insert Non-Tunneled Venous Catether Completed Encounters Type Date Location Provider CPT E/M Dx Office Visit 01/03/2018 9:40a [facility] Hai Tilley, 18134 M54.16 Medicine - [place] Sandro Akers M54.16 Office Visit 12/27/2017 10:00a [facility] Hai Tilley 00438 M54.16 Medicine - [place] Sandro Akers Office Visit 11/26/2017 1:40p [facility] Internal Todd Delia Bravo, 00148 M54.5 [facility] - Dom Akers,FACP F41.9 Office Visit 09/11/2016 10:05a [facility] Internal Todd Delia Bravo, 96861 M65.872 [facility] Fernandes M.D.,FACP F41.9 Office Visit 08/23/2016 10:30a [facility], 77106 M65.872 C.M.A. MGibran Office Visit 07/31/2016 10:00a [facility], 70676 M79.672 C.M.A. MGibran S61.001A Office Visit 07/25/2016 4:20p [facility] Internal Todd Delia Bravo, 03174 M67.472 Medicine - [place] Sandro Akers,FACP Office Visit 05/11/2016 4:00p [facility] Internal Todd Delia Bravo, 48273 F41.9 Medicine - [place] Sandro Levy.Delia,FACP R07.89 G40.89 Office Visit 05/04/2016 12:50p [facility], Pardeep Nuno.Channing 16176 R07.9 Hospitalists M62.838 F41.9 F17.201 Office Visit 05/03/2016 12:49p [facility], [place] [address] R07.9 Hospitalists M62.838 F41.9 F17.201 Office Visit 04/10/2016 4:40p [facility] Internal Medicine Todd Bravo, 68357 K40.91 - Dom Akers,FACP Office Visit 03/27/2016 11:30a [facility] Internal Medicine Todd Bravo, 60283 G40.89 - Dom Akers,FACP T43.215A Office Visit 03/06/2016 2:20p [facility] Internal Medicine Todd Bravo, 92726 F43.22 - Dom Akers,FACP Office Visit 01/23/2016 11:00a [facility] [place] [address] F43.22 - [address] Office Visit 07/05/2015 10:10a [facility] Medicine Todd Bravo, 66825 Z00.00 - Dom Akers,FACP F52.21 F43.22 Z71.7 Z12.11 Z71.6 Office Visit 05/03/2015 9:10a [facility] Internal Medicine Todd Bravo, 73044 N52.1 - Dom Akers,FACP S61.011A Office Visit 03/04/2015 2:30p [facility] Mahmood M.D. 33363 715.11 C.M.AEwelina 719.41 726.10 726.2 Office Visit 02/22/2015 11:40a [facility] Internal Medicine Bakari Conway M.D. 25428 719.41 - [address] Office Visit 2015 1:00p [facility] Cotton, 65477 840.8 C.M.A. Delphine 840.8 728.85 728.85 Office Visit 12/30/2014 4:40p [facility] Internal Medicine Todd Bravo, 46365 840.8 - [address] M.DEwelina,FACP Office Visit 11/11/2014 1:40p [facility] Medicine Hai Tilley, 93565 466.0 - [address] M.DEwelina 807.02 Office Visit 10/08/2014 10:30a [facility] Internal [place] [address] Office Visit 07/20/2014 11:10a [facility] Internal Medicine - Todd Bravo, 38650 780.52 Dom Akers,FACP 724.2 V73.99 V65.44 Office Visit 02/12/2014 2:20p [facility] Internal Medicine Todd Bravo, 48259 724.2 - Dom Akers,FACP 305.1 Office Visit 12/14/2013 11:40a [facility] Medicine Zeferino Naik, 10086 724.2 - Dom Akers Office Visit 09/17/2013 11:50a [facility] Medicine Todd Bravo, 02541 724.2 - [facility] Visit 09/02/2013 2:20p [facility] Medicine Todd Bravo, 06339 724.2 - Dom [facility] Office Visit 04/17/2013 9:40a [facility] Internal Medicine Todd Bravo, 14331 733.13 - Dom Akers,FACP 401.1 275.42 Office Visit 03/16/2013 3:00p [facility] Medicine Todd Bravo, 85816 733.13 - Dom [facility] 401.1 v04.81 Office Visit 11/03/2009 12:30a [facility],jase Mac M.D. 50487 584.9 Hospitalists Office Visit 11/02/2009 12:15a [facility],jase Mac M.D. 69590 584.9 Hospitalists Office Visit 10/31/2009 12:30a [facility],jase Giang M.D. 00678 584.9 Hospitalists 276.7 Office Visit 10/30/2009 [facility] Bianca Staley, 29859 276.2 Hospitalists Delphine 584.9 276.7 Plan of Care Future Appointment(s):03/24/2018 2:20 pm - Todd Bravo M.D.,FACP at [facility] Internal Medicine - [address]02/20/2018 - Todd Bravo M.D.,FACPG40.89 Other seizuresNew Orders:EEG, RoutineComments:Please complete EEG testing to investigate your seizure symptoms.Discussed discontinuing Tramadol use because this can cause seizures. Please begin taking Gabapentin for the nerve pain in your legs.A69.20 Lyme disease, unspecifiedNew Labs:Lyme Disease SerologyErythrocyte Sed RateC Reactive ProteinComments:Discussed removing ticks within 24 hours, to prevent infection. If tick engorged and present for unclear duration, should take doxycyline 200 mg x1 dose. Complete bloodwork to test for Lyme Disease.F41.9 Anxiety disorder, unspecifiedNew Labs:TSH (Thyroid Stim Horm)Vitamin H01Zymbuaqs:Discussed your symptoms are consistent with increased anxiety. You may begin taking Lexapro as prescribed to prevent anxiety. You may take Xanax as needed. Please follow up with Mental Health as planned. Please complete bloodwork.
[2018-03-19 16:01] VITALS: BP 164/98
--- NOTE | 2018-03-19 16:41 | ED ---
Respiratory - HPI Summary HPI Summary: Patient is a 53-year-old male who presents emergency department for productive cough, fever, headache, nasal congestion times several days. Past medical history of anxiety and depression. Patient states he smokes a few cigarettes a day. Patient denies chest pain, abdominal pain, vomiting, diarrhea. 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 Patient also notes that he is been having increased anxiety over the last several days and he is currently his anxiety medication Xanax. Patient states he also was prescribed Lexapro by his PCP. Patient recently went through intake process all a counselor. Patient states instructed him to increase his Lexapro and he has ran out of tablets. Patient denies suicidal or homicidal ideations. Patient states he has an apt. with his PCP in 5 days. Symptoms are mild in severity. No current modifying factors. - History of Current Complaint Chief Complaint: EDUpperRespComplaint Stated Complaint: COUGH/ANXIETY Time Seen by Provider: 03/19/18 14:36 Hx Obtained From: Patient Pain Intensity: 8 - Allergy/Home Medications Allergies/Adverse Reactions: Allergies Allergy/AdvReac Type Severity Reaction Status Date / Time No Known Allergies Allergy Verified 11/26/17 11:51 Home Medications: Home Medications Escitalopram (NF) [Lexapro 10 mg (NF)] 10 mg PO DAILY 03/19/18 [History Confirmed 03/19/18] PMH/Surg Hx/FS Hx/Imm Hx Previously Healthy: Yes Endocrine/Hematology History: Denies: Hx Anticoagulant Therapy, Hx Diabetes, Hx Thyroid Disease Cardiovascular History: Denies: Hx Congestive Heart Failure, Hx Deep Vein Thrombosis, Hx Hypertension - PT STATES NOT ON ANY MEDICATION--he was on medication before ( HTCZ),, Hx Myocardial Infarction, Hx Pacemaker/ICD, Other Cardiovascular Problems/Disorders Respiratory History: Denies: Hx Asthma, Hx Chronic Obstructive Pulmonary Disease (COPD), Hx Lung Cancer, Hx Pneumonia, Hx Pulmonary Embolism, Other Respiratory Problems/ Disorders GI History: Denies: Hx Gall Bladder Disease, Hx Gastrointestinal Bleed, Hx Ulcer, Hx Urosepsis History: Reports: Hx Renal Disease - 7 years ago, 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 Denies: Hx Kidney Stones Musculoskeletal History: Reports: Hx Back Problems Sensory History: Denies: Hx Hearing Aid Neurological History: Denies: Hx Dementia, Hx Migraine, Hx Seizures, Hx Transient Ischemic Attacks (TIA) Psychiatric History: Reports: Hx Anxiety - He is going through a lot of social stress., Hx Depression, Hx Substance Abuse - 3yrs ago, Rx meds Denies: Hx Panic Disorder, Hx Schizophrenia, Hx Bipolar Disorder - Surgical History Surgery Procedure, Year, and Place: HERNIA REPAIR 10 YEARS AGO - Immunization History Immunizations Up to Date: Yes Infectious Disease History: No Infectious Disease History: Denies: Hx Hepatitis, Hx Human Immunodeficiency Virus (HIV), History Other Infectious Disease, Traveled Outside the [place] in Last 30 Days - Family History Known Family History: Positive: None, Cardiac Disease - Mother, Other - Lung cancer (father) Negative: Seizure Disorder, Blood Disorder Family History: NON CONTRIBUTORY - Social History Occupation: Employed Full-time Lives: Alone Alcohol Use: Weekly Alcohol Amount: "couple of beer after work" Hx Substance Use: Yes Substance Use Type: Reports: None Hx Tobacco Use: Yes Smoking Status (MU): Light Every Day Tobacco Smoker Type: Cigarettes Amount Used/How Often: quit jun 2015 Review of Systems Positive: Fever, Chills Eyes: Negative Positive: Nasal Discharge Cardiovascular: Negative Negative: Palpitations, Chest Pain Positive: Cough, Other - wheeze Gastrointestinal: Negative Negative: Abdominal Pain, Vomiting, Diarrhea Genitourinary: Negative Positive: Headache. Negative: Weakness, Paresthesia, Numbness, Syncope Positive: Anxious All Other Systems Reviewed And Are Negative: Yes Physical Exam Triage Information Reviewed: Yes Vital Signs On Initial Exam: Initial Vitals Temp Pulse Resp BP Pulse Ox 97.6 F 89 19 162/100 99 03/19/18 14:08 03/19/18 14:08 03/19/18 14:08 03/19/18 14:08 03/19/18 14:08 Vital Signs Reviewed: Yes Appearance: Positive: Well-Appearing - Patient sitting in chair in no acute distress. Head/Face: Positive: Normal Head/Face Inspection Eyes: Positive: Normal, EOMI ENT: Positive: Pharynx normal, TMs normal. Negative: Pharyngeal erythema, Tonsillar swelling, Tonsillar exudate Neck: Positive: Supple. Negative: Nuchal Rigidity Respiratory/Lung Sounds: Positive: Other - Mild expiratory wheeze noted throughout. Breathing easily on room air. No accessory muscle use. Cardiovascular: Positive: Normal, RRR Neurological: Positive: Normal, CN Intact II-III Psychiatric: Positive: Affect/Mood Appropriate Diagnostics - Vital Signs Vital Signs Temp Pulse Resp BP Pulse Ox 03/19/18 16:00 98.2 F 80 18 164/98 99 03/19/18 14:08 97.6 F 89 19 162/100 99 - Laboratory Lab Statement: Any lab studies that have been ordered have been reviewed, and results considered in the medical decision making process. Disposition - Course Course Of Treatment: Patient presenting with productive cough, wheeze, headache , nasal congestion. Monasyn requesting anxiety medication. This x-ray was obtained to for pneumonia and is negative, reading per radiology. Symptoms are patient presenting Zithromax, prednisone and albuterol inhaler. I spoke with patient's PCP, Dr. Bravo, who rx pt.'s xanax. Dr. Bravo states he will send a rx for xanax and lexapro to pt.'s pharmacy. Also discussed. Advised patient to increase fluids and rest. Tylenol or Motrin for pain and fever as directed. Follow-up with PCP as scheduled and return to the ER if symptoms change or worsen. - Differential Dx - Cardiopulmonary Differential Diagnoses - Cardiopulmonary: Influenza - Diagnoses Provider Diagnoses: Bronchitis, Bronchospasm, Anxiety Discharge - Sign-Out/Discharge Documenting (check all that apply): Patient Departure - Discharge Plan Condition: Good Disposition: HOME Prescriptions: Albuterol HFA INHALER* [Ventolin HFA Inhaler*] 2 puff INH Q6H PRN #1 mdi PRN Reason: Wheezing Azithromyxin MED (NF) [Z-Med (Zithromax) 250 mg tabs #6] 2 tab PO .TODAY, THEN 1 DAILY #6 tab methylPREDNISolone [Medrol Dosepak 4 MG*] 0 mg PO .SEE MED INSTRUCTION #1 tab Patient Education Materials: Acute Bronchitis (ED), Bronchospasm (ED) Forms: *Work Release Referrals: Todd Bravo MD [Primary Care Provider] - Additional Instructions: Schedule a close follow up appointment with your PCP Take medication as directed Avoid smoking Return to ER if symptoms change or worsen - Billing Disposition and Condition Condition: GOOD Disposition: Home
== END 2018-03-19 16:00 | disposition home or self-care (01) ==
LOC: ED 14:01
DX: J40 Bronchitis, not specified as acute or chronic (principal); J98.01 Acute bronchospasm; F41.9 Anxiety disorder, unspecified; F17.210 Nicotine dependence, cigarettes, uncomplicated
CPT/HCPCS: 71046; 99282

== ENCOUNTER 2018-05-28 12:21 | Emergency (ER) | payer OTHER ==
[2018-05-28] MEDS ORDERED: NS 0.9% 1000 ML* 1,000 ML IV ONE (12:29)
--- OUTSIDE RECORDS SUMMARY | 2018-05-28 12:44 | XMS REPORT | Continuity of Care Document ---
:1965 External Reference #:[id number] Author Name Serina Warner Care Team Providers Name Role Phone Todd Bravo MD Primary Care Physician Unavailable Payers Type Date Identification Numbers Payment Provider Subscriber Policy Number: [id number] [employer] Medicaid Serge Savage PayID: [id number] [address] [address] [place] [address] Expires: 2017 Policy Number: [id number] Medicaid Serge Savage Group Name: 1 1 [address] PayID: [id number] [place] [address] Onset: 2014 Policy Number: [id number] [facility] Insurance Fund Serge Savage [place]: [id number] [address] [address] [place] [address] Advance Directives Description No Information Available Problems Date Description Provider Status Onset: 07/20/2014 Chronic low back pain Carri Davis M.D.,FACP Onset: 2015 Sprain of shoulder and upper arm Reginald Cotton M.D. Active Onset: 03/04/2015 Localized, primary Diana Mahmood M.D. Active osteoarthritis of the shoulder region Onset: 03/06/2016 Anxiety disorder Carri Davis M.D., FACP Onset: 05/11/2016 Ex-smoker Carri Davis M.D., FACP Onset: 01/03/2018 Lumbar radiculopathy Hai Tilley M.D. Active Onset: 03/16/2013 Benign essential hypertension Lizbeth Davis M.D.,FACP Inactive: 07/20/2014 Onset: 03/16/2013 Pathological fracture of Todd Bravo, Inactive vertebra Delphine,FACP Inactive: 05/03/2015 Onset: 09/17/2013 Light cigarette smoker (1-9 Todd Bravo M.D.,FACP Inactive cigs/day) Inactive: 05/11/2016 Onset: 11/11/2014 Closed fracture of two ribs Hai Tilley M.D. Resolved Resolved: 05/03/2015 Onset: 03/28/2018 Subclinical hyperthyroidism Todd Bravo M.D.,FACP Resolved Resolved: 05/22/2018 Note: ? 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 [employer] Negative For Second hand smoke at home Tobacco Use Start: Unknown End: Former Cigarette Smoker quit 06/24/15 Unknown ETOH Use 05/22/2018 Consumes 2 beers per day Recreational Drug Use Sporadically uses Marijuana Tobacco Use Start: Unknown Light tobacco smoker (10 or fewer cigarettes/day) Smoking Status Reviewed: 05/22/18 Light tobacco smoker (10 or fewer cigarettes/day) Exercise Type/Frequency Exercises regularly Allergies, Adverse Reactions, Alerts Date Description Reaction Status Severity Comments 02/20/2018 Sertraline Active intolerant 03/16/2013 NKDA Inactive Medications Medication Date Status Form Strength Qnty SIG Indications Ordering Provider Tramadol HCL 05/22 Active Tablets 50mg 180ta 1-2 tabs 3 bs times a day Delia Bravo, as needed Delphine,GARRISON Clonazepam 04/21 Active Tablets 0.5mg 30tab one po bid F41.9 s prn anxiety MD Mat Vitamin B 12 04/12 Active Lozenges 250mcg 100un by mouth its every day Delia Bravo M.D.,TONIEP Lexapro 03/19 Active Tablets 20mg 30tab 1 by mouth s every day Delia Bravo M.D.,GARRISON Baclofen 12/27 Active Tablets 10mg 30tab take 1 M54.16 s tablets by [place], mouth twice MD a day Triamcinolone 12/30 Active Cream 0.5% 30gm to affected area every Delia Bravo, day as MGibran,FACP needed Gabapentin 03/16 Active Capsules 300mg 180ca take two ps capsules by Delia Bravo, mouth three M.D.,FACP times daily Lexapro 02/20 Hx Tablets 10mg 30tab 1 by mouth s every day Willie Farrar M.D.,FACP 03/19 Hydrocodone 02/20 Hx Tablets 5-325mg 21tab 1 by mouth Todd Bitartrate/Acetam s three times Delia Bravo, inophen - a day as M.DEwelina,FACP 05/22 needed Naproxen 08/23 Hx Tablets 500mg 42tab 1 by mouth M65.872 Manjinder s twice a day Jose Miguel, - as needed Delphine 04/21 Hydrocodone-Aceta 08/09 Hx Tablets 5-325mg 20tab 1-2 by mouth M67.472 Todd minophen /2016 s every 6 DEwelina Bravo, - hours prn. [facility]phine[facility] 10/11 Tylenol With 07/31 Hx Tablets 300-30mg 8tabs 1 tab by M79.672 Manjinder Codeine #3 mouth every Jose Miguel, - 4 hours as M.DEwelina 08/09 needed pain Hydrocodone-Aceta 07/25 Hx Tablets 7.5-325mg 30tab 1 tab by S22.49xA Todd minophen /2016 s mouth q6 DEwelina Bravo, - hours as M.[facility]welina,[facility] 08/09 needed pain Xanax 05/11 Hx Tablets 0.5mg 20tab 1 tab 12 h F43.22 s as needed Willie Farrar M.[facility].,[facility] 04/21 Sertraline HCL 03/06 Hx Tablets 50mg 30tab 1/2 tab F43.22 s daily for 10 D. Shelly, - days then 1 M.DEwelina,FACP 03/27 by mouth /2015 every day Lexapro 01/22 Hx Tablets 20mg 30tab 1 by mouth F43.22 Aric s every day [place], - [facility] RN 03/06 Xanax 01/22 Hx Tablets 0.25mg 30tab take 1 F43.22 s tablet by Delia Bravo, - mouth twice M.D.,[facility] 11 a day only as needed; Lorazepam 11/08 Hx Tablets 1mg 10tab 1-2 tab at s hs as needed - for anxiety 01/22 Diazepam 07/05 Hx Tablets 10mg 10tab 1/2-1 tab po F43.22 s qd prn Willie Farrar M.D.,[facility] 01/22 Viagra 05/03 Hx Tablets 50mg 7tabs 1 by mouth N52.1 as needed Willie Farrar M.D.,[facility] 04/21 Diazepam 05/03 Hx Tablets 10mg 10tab 1/2-1 tab po N52.1 s qd prn Willie Farrar M.D.,[facility] 07/05 Soma 03/04 Hx Tablets 250mg 40tab 1 tab q8 715.11 Diana s hours by Timoteo, - mouth as M.D. 05/03 needed muscle spasms Skelaxin 02/22 Hx Tablets 800mg 45tab 1 tablet by 719.41 Bakari s mouth three [place], - times a day, M.D. 05/03 as needed for muscle contraction Mobic 01/11 Hx Tablets 7.5mg 60tab 1 by mouth s twice a day Yury, - as needed, M.D. 05/03 take with meals [place] 01/11 Hx Tablets 5-325mg 40tab 1-2 by mouth s daily as Yury, - needed M.D. 05/03 Celecoxib 12/30 Hx Capsules 200mg 28cap 1 tab PO bid 840.8 s for 2 wks Delia Bravo, - (work MGibran,[facility] 01/11 injury) Azithromycin 11/11 Hx Tablets 250mg 6tabs 2 tab today 466.0 and then Pachikara - 1tab daily , M.D. 12/29 Prednisone 11/11 Hx Tablets 10mg 30tab 5tabx 466.0 s 2days,4 Pachikara - [id number] , M.D. 12/29 [id number], ooev7pyao,1t abxday. Hydrocodone-Aceta 10/08 Hx Tablets 7.5-325mg 20tab 1 tab by 807.02 Palermo s mouth q6 Pachikara - hours as , M.DEwelina 12/29 needed Trazodone HCL 07/20 Hx Tablets 50mg 30tab Take One G47.00 Tdod s Tablet By Delia Bravo, - Mouth Every M.DEwelina,[facility] 03/06 Night AT Bedtime Tramadol HCL ER 02/12 Hx Tablets 100mg 90tab 1-2 tabs 724.2 Todd (Biphasic) ER 24HR s twice a day Willie Farrar M.D.,[facility] 07/20 Tramadol HCL 02/12 Hx Tablets 50mg 30tab 1-2 three M54.5 Todd s times a day Delia Bravo - as needed MGibran,[facility] 02/20 mdd Chantix Starting 09/17 Hx Tablets 0.5mg X 1mon as directed 780.52 Padma Post Month Paulo 11 & 1 mg Willie Farrar X [address]welina,[facility] 07/20 Lisinopril-Hydroc 09/14 Hx Tablets 10-12.5mg 90tab 1 by mouth Padma Post hlorothiazide s every day Willie Farrar M.D.,[facility] 07/20 Oxycodone/Acetami 09/02 Hx Tablets 7.5-325mg 60tab 1 po qid prn 724.2 Todd nophen s Willie Farrar M.D.,FACP 09/17 Cyclobenzaprine 09/02 Hx Tablets 10mg 30tab take 1 724.2 Todd HCL s tablet tid D. [place], - as needed M.D.,FACP 09/17 Vitamin D 04/17 Hx Capsules 1000Unit 30cap po qd 275.42 Todd s Willie Farrar M.D.,[facility] 11/10 Tylenol Extra 03/16 Hx Tablets 500mg 100ta 2 po prn Todd Strength /2012 bs Willie Farrar.Delia,FACP 12/14 Hydrocodone/Aceta 03/16 Hx Tablets 5-325mg 70tab 1 tablet by 724.2 Zeferino Lomas minophen s mouth four Heena, - times a day M.D. 02/12 as needed /2013 Lisinopril/Hydroc 03/16 Hx Tablets 10-12.5mg 30tab take 1 401.1 Padma hlorothiazide s tablet by Delia Bravo, - mouth every M.D.,FACP 09/14 morning /2013 Ibuprofen 03/16 Hx Tablets 400mg 100ta take one Todd bs tablet by Delia Bravo, - mouth four M.D.,[facility] 07/20 times daily /2014 as needed Chlordiazepoxide Hx Capsules 25mg pt takes two Unknown HCL /0000 tabs in am - and two tabs 09/11 in /2016 Medications Administered in Office Medication Date Status Form Strength Qnty SIG Indications Ordering Provider Depomedrol Administered Injection Diana 80MG 015 Delphine Mahmood Immunizations CPT Code Status Date Vaccine Lot # [id number] Given 03/16/2013 Flu Vaccine Split Virus Preservative Free For [id number] Indiv [id number] Older Vital Signs Date Vital Result Comment 05/22/2018 4:18pm Height 68 inches 5'8" Weight 152.00 lb Heart Rate 103 /min BP Systolic Sitting 140 mmHg BP Diastolic Sitting 90 mmHg Body Temperature 97.7 F O2 % BldC Oximetry 97 % BMI (Body Mass Index) 23.1 kg/m2 04/21/2018 2:40pm Height 68 inches 5'8" Weight 143.50 lb Heart Rate 105 /min BP Systolic 170 mmHg BP Diastolic 90 mmHg Body Temperature 97.7 F O2 % BldC Oximetry 97 % BMI (Body Mass Index) 21.8 kg/m2 02/20/2018 2:43pm Height 68 inches 5'8" Weight 135.00 lb Heart Rate 85 /min BP Systolic Sitting 160 mmHg BP Diastolic Sitting 90 mmHg Body Temperature 97.3 F O2 % BldC Oximetry 98 % BMI (Body Mass Index) 20.5 kg/m2 01/03/2018 9:36am Height 68 inches 5'8" Weight 142.00 lb Heart Rate 74 /min BP Systolic Sitting 138 mmHg BP Diastolic Sitting 72 mmHg Body Temperature 96.6 F O2 % BldC Oximetry 98 % BMI (Body Mass Index) 21.6 kg/m2 12/27/2017 9:40am Height 68 inches 5'8" Weight 148.19 lb Heart Rate 70 /min BP Systolic Sitting 142 mmHg BP Diastolic Sitting 90 mmHg O2 % BldC Oximetry 99 % BMI (Body Mass Index) 22.5 kg/m2 11/26/2017 1:13pm Height 68 inches 5'8" Weight 148.00 lb Heart Rate 92 /min BP Systolic Sitting 140 mmHg BP Diastolic Sitting 90 mmHg Body Temperature 97.8 F O2 % BldC Oximetry 98 % BMI (Body Mass Index) 22.5 kg/m2 09/11/2016 10:10am Weight 161.75 lb Heart Rate 76 /min BP Systolic Sitting 134 mmHg BP Diastolic Sitting 80 mmHg Body Temperature 97.9 F O2 % BldC Oximetry 98 % 08/23/2016 10:58am Height 67 inches 5'7" Weight 159.00 lb Heart Rate 82 /min BP Systolic 126 mmHg BP Diastolic 88 mmHg Respiratory Rate 19 /min Pain Level 9 BMI (Body Mass Index) 24.9 kg/m2 07/31/2016 9:41am Height 67 inches 5'7" Weight 159.00 lb Heart Rate 80 /min BP Systolic 119 mmHg BP Diastolic 90 mmHg Respiratory Rate 18 /min Pain Level 10 BMI (Body Mass Index) 24.9 kg/m2 07/25/2016 4:26pm Weight 160.50 lb Heart Rate 66 /min BP Systolic Sitting 134 mmHg BP Diastolic Sitting 80 mmHg Body Temperature 98.1 F O2 % BldC Oximetry 99 % 05/11/2016 3:51pm Height 56 inches 4'8" Weight 155.50 lb Heart Rate 102 /min BP Systolic Sitting 138 mmHg BP Diastolic Sitting 81 mmHg Body Temperature 97.3 F O2 % BldC Oximetry 98 % BMI (Body Mass Index) 34.9 kg/m2 04/10/2016 4:45pm Weight 149.00 lb with shoes Heart Rate 75 /min BP Systolic Sitting 130 mmHg BP Diastolic Sitting 90 mmHg O2 % BldC Oximetry 98 % 03/27/2016 11:31am Weight 150.00 lb Heart Rate 86 /min BP Systolic Sitting 150 mmHg BP Diastolic Sitting 90 mmHg Respiratory Rate 15 /min Body Temperature 98.4 F O2 % BldC Oximetry 99 % 03/06/2016 2:24pm Weight 148.00 lb Heart Rate 76 /min BP Systolic Sitting 150 mmHg BP Diastolic Sitting 88 mmHg Respiratory Rate 15 /min Body Temperature 98.3 F O2 % BldC Oximetry 98 % 01/23/2016 11:03am Height 56 inches 4'8" Weight 146.00 lb Heart Rate 101 /min BP Systolic 146 mmHg BP Diastolic 82 mmHg Body Temperature 97.9 F O2 % BldC Oximetry 99 % BMI (Body Mass Index) 32.7 kg/m2 07/05/2015 10:29am Height 56 inches 4'8" Weight 149.00 lb Heart Rate 81 /min BP Systolic 134 mmHg BP Diastolic 90 mmHg Body Temperature 97.6 F O2 % BldC Oximetry 99 % BMI (Body Mass Index) 33.4 kg/m2 05/03/2015 8:39am Weight 155.00 lb Heart Rate 77 /min BP Systolic Sitting 136 mmHg BP Diastolic Sitting 90 mmHg Body Temperature 96.4 F 03/04/2015 3:10pm Height 66.5 inches 5'6.50" Weight 160.00 lb Pain Level 7 BMI (Body Mass Index) 25.4 kg/m2 02/22/2015 11:46am Height 66.5 inches 5'6.50" Weight 189.12 lb Heart Rate 91 /min BP Systolic Sitting 130 mmHg BP Diastolic Sitting 82 mmHg Body Temperature 97.7 F O2 % BldC Oximetry 98 % BMI (Body Mass Index) 30.1 kg/m2 2015 1:05pm Height 66.5 inches 5'6.50" Weight 164.00 lb Heart Rate 93 /min BP Systolic Sitting 137 mmHg BP Diastolic Sitting 96 mmHg Respiratory Rate 18 /min Pain Level 9 BMI (Body Mass Index) 26.1 kg/m2 12/30/2014 4:39pm Height 66.5 inches 5'6.50" Weight 164.12 lb Heart Rate 100 /min BP Systolic Sitting 118 mmHg BP Diastolic Sitting 62 mmHg Body Temperature 97.8 F O2 % BldC Oximetry 98 % BMI (Body Mass Index) 26.1 kg/m2 11/11/2014 12:58pm Weight 155.00 lb Heart Rate 86 /min BP Systolic Sitting 130 mmHg BP Diastolic Sitting 92 mmHg Body Temperature 97.8 F O2 % BldC Oximetry 98 % 10/08/2014 10:34am Weight 156.00 lb Heart Rate 94 /min BP Systolic Sitting 148 mmHg BP Diastolic Sitting 94 mmHg Body Temperature 97.4 F O2 % BldC Oximetry 99 % 07/20/2014 10:45am Weight 165.75 lb Heart Rate 96 /min BP Systolic Sitting 126 mmHg BP Diastolic Sitting 88 mmHg Body Temperature 97.8 F 02/12/2014 2:42pm Weight 172.00 lb Heart Rate 56 /min BP Systolic Sitting 120 mmHg BP Diastolic Sitting 82 mmHg Body Temperature 96.0 F 12/14/2013 11:33am Height 66.5 inches 5'6.50" Weight 165.00 lb Heart Rate 88 /min BP Systolic Sitting 134 mmHg BP Diastolic Sitting 86 mmHg Body Temperature 98.2 F BMI (Body Mass Index) 26.2 kg/m2 09/17/2013 11:58am Height 6.5 inches 0'6.50" Weight 165.50 lb Heart Rate 68 /min BP Systolic Sitting 100 mmHg BP Diastolic Sitting 60 mmHg Body Temperature 98.0 F BMI (Body Mass Index) 2753.8 kg/m2 09/02/2013 2:10pm Weight 168.00 lb Heart Rate 76 /min BP Systolic Sitting 112 mmHg BP Diastolic Sitting 72 mmHg Body Temperature 97.6 F 04/17/2013 9:46am Weight 164.00 lb Heart Rate 100 /min BP Systolic Sitting 124 mmHg BP Diastolic Sitting 78 mmHg 03/16/2013 2:52pm Height 66.25 inches 5'6.25" Weight 156.50 lb Heart Rate 110 /min BP Systolic Sitting 152 mmHg BP Diastolic Sitting 92 mmHg BMI (Body Mass Index) 25.1 kg/m2 Results Test Date Facility Test Result H/L Range Note Thyroid Function 04/17/2018 [facility] Thyroid Stim 1.6 mIU/L 0.3-4.2 [address] [place] [address] [address] [phone] Laboratory test 03/19/2018 [facility] Lyme Disease Negative Negative [address] [place] [address] [phone] Erythrocyte Sed Rate 0 mm/Hr N 0-20 C Reactive Protein 28.35 mg/L High <8.01 TSH (Thyroid Stim Horm) 0.17 mcIU/mL Low 0.34-5.60 Vitamin B12 221 pg/mL N 180-914 3 Lipid Profile 02/17/2018 [facility] Triglycerides 86 mg/dL 4 (Trig/Chol/HDL) [address] [place] [address] [phone] Cholesterol 191 mg/dL 5 HDL Cholesterol 81.9 mg/dL 6 LDL Cholesterol 92 mg/dL 7 Basic Metabolic Panel 02/17/2018 [facility] Sodium 137 mmol/L N 135-[address] [place] [address] [phone] Potassium 4.3 mmol/L N 3.5-5.0 Chloride 107 mmol/L N 101-111 Co2 Carbon Dioxide 25 mmol/L N 22-32 Anion Gap 5 mmol/L N 2-11 Glucose 94 mg/dL N 70-100 Blood Urea Nitrogen 14 mg/dL N 6-24 Creatinine 0.91 mg/dL N 0.67-1.17 BUN/Creatinine Ratio 15.4 N 8-20 Calcium 9.3 mg/dL N 8.6-10.3 Egfr Non- 87.2 >60 Egfr 105.5 >60 8 CBC Auto Diff 01/23/2016 [facility] White Blood 7.2 10^3/uL N 3.5-10.[address] [place] [address] [phone] Red Blood Count 5.15 10^6/uL N 4.0-5.4 Hemoglobin 15.3 g/dL N 14.0-18.0 Hematocrit 44 % N 42-52 Mean Corpuscular Volume 86 fL N 80-94 Mean Corpuscular Hemoglobin 30 pg N 27-31 Mean Corpuscular HGB Conc 35 g/dL N 31-36 Red Cell Distribution Width 14 % N 10.5-15 Platelet Count 209 10^3/uL N 150-450 Mean Platelet Volume 8 um3 N 7.4-10.4 Abs Neutrophils 5.5 10^3/uL N 1.5-7.7 Abs Lymphocytes 1.2 10^3/uL N 1.0-4.8 Abs Monocytes 0.4 10^3/uL N 0-0.8 Abs Eosinophils 0.1 10^3/uL N 0-0.6 Abs Basophils 0.1 10^3/uL N 0-0.2 Abs Nucleated RBC 0.02 10^3/uL N Granulocyte % 75.7 % N 38-83 Lymphocyte % 17.2 % Low 25-47 Monocyte % 5.1 % N 1-9 Eosinophil % 1.0 % N 0-6 Basophil % 1.0 % N 0-2 Nucleated Red Blood Cells % 0.3 N Urinalysis Profile 01/23/2016 [facility] Urine Color Yellow N [address] [place] [address] [phone] Urine Appearance Clear N Urine Specific May 1.015 N 1.010-1.030 Urine pH 7.0 N 5-9 Urine Urobilinogen Negative N Negative Urine Ketones 1+ Abnormal Negative Urine Protein Negative N Negative Urine Leukocytes Negative N Negative Urine Blood Negative N Negative Urine Nitrite Negative N Negative Urine Bilirubin Negative N Negative Urine Glucose Negative N Negative Urine Drug 01/23/2016 [facility] Amphetamine Ur None Detected N None Detect SCR ED & [address] [place] [address] [phone] Barbiturates Urine Screen None Detected N None Detect Benzodiazepine Urine Screen Presumptive Posi <SEE NOTE> Abnormal None Detect 9 Urine Cannabinoids Screen Presumptive Posi <SEE NOTE> Abnormal None Detect 10 Urine Cocaine Screen None Detected N None Detect Urine Opiates Screen None Detected N None Detect Urine Phencyclidine Screen None Detected N None Detect 11 Comp Metabolic Panel 01/23/2016 [facility] Sodium 136 mmol/L N 133-[address] [place] [address] [phone] Potassium 3.8 mmol/L N 3.5-5.0 Chloride 104 mmol/L N 101-111 Co2 Carbon Dioxide 20 mmol/L Low 22-32 Anion Gap 12 mmol/L High 2-11 Glucose 94 mg/dL N 70-100 Blood Urea Nitrogen 13 mg/dL N 6-24 Creatinine 0.93 mg/dL N 0.67-1.17 BUN/Creatinine Ratio 14.0 N 8-20 Calcium 9.3 mg/dL N 8.6-10.3 Total Protein 7.4 g/dL N 6.4-8.9 Albumin 4.2 g/dL N 3.2-5.2 Globulin 3.2 g/dL N 2-4 Albumin/Globulin Ratio 1.3 N 1-3 Total Bilirubin 1.00 mg/dL N 0.2-1.0 Alkaline Phosphatase 62 U/L N 34-104 Alt 24 U/L N 7-52 Ast 31 U/L N 13-39 Egfr Non- 85.7 N >60 Egfr 110.2 N >60 12 Laboratory test 01/23/2016 [facility] Troponin-I (TnI) 0.00 ng/ mL N <0.03 [address] [place] [address] [phone] Acetaminophen < 15 g/mL N 14 Alcohol < 10 mg/dL N <10 Salicylate < 2.50 mg/dL N <30 TSH (Thyroid Stim Horm) 0.52 mcIU/mL N 0.34-5.60 Urinalysis Profile 01/22/2016 [facility] Urine Color Yellow N [address] [place] [address] [phone] Urine Appearance Clear N Urine Specific May 1.016 N 1.010-1.030 Urine pH 5.0 N 5-9 Urine Urobilinogen Negative N Negative Urine Ketones Negative N Negative Urine Protein Negative N Negative Urine Leukocytes Negative N Negative Urine Blood Negative N Negative Urine Nitrite Negative N Negative Urine Bilirubin Negative N Negative Urine Glucose Negative N Negative Urine Drug 01/22/2016 [facility] Amphetamine Ur None Detected N None Detect SCR ED & [address] [place] [address] [phone] Barbiturates Urine Screen None Detected N None Detect Benzodiazepine Urine Screen None Detected N None Detect Urine Cannabinoids Screen Presumptive Posi <SEE NOTE> Abnormal None Detect 15 Urine Cocaine Screen None Detected N None Detect Urine Opiates Screen None Detected N None Detect Urine Phencyclidine Screen None Detected N None Detect 16 Laboratory test 08/27/2015 [facility] Rapid Influenza SEE RESULT [address] [place] [address] [phone] Rapid Strep A SEE RESULT BELOW 18 Rapid 08/27/2015 [facility] Influenza A POSITIVE Abnormal Negative 19 Influenza A & [address] [place] [address] [phone] Influenza B Molecular NEGATIVE N Negative Laboratory test 08/27/2015 [facility] Rapid Strep Negative N Negative [address] [place] [address] [phone] Throat-Beta Strept SEE RESULT BELOW 21 CBC Auto Diff 02/25/2015 [facility] White Blood 6.3 10^3/uL N 4.8-10.[address] [place] [address] [phone] Red Blood Count 4.65 10^6/uL N 4.0-5.4 Hemoglobin 13.5 g/dL Low 14.0-18.0 Hematocrit 40 % Low 42-52 Mean Corpuscular Volume 86 fL N 80-94 Mean Corpuscular Hemoglobin 29 pg N 27-31 Mean Corpuscular HGB Conc 34 g/dL N 31-36 Red Cell Distribution Width 13 % N 10.5-15 Platelet Count 200 10^3/uL N 150-450 Mean Platelet Volume 8 um3 N 7.4-10.4 Abs Neutrophils 4.6 10^3/uL N 1.5-7.7 Abs Lymphocytes 1.2 10^3/uL N 1.0-4.8 Abs Monocytes 0.3 10^3/uL N 0-0.8 Abs Eosinophils 0.1 10^3/uL N 0-0.6 Abs Basophils 0.1 10^3/uL N 0-0.2 Abs Nucleated RBC 0 10^3/uL N Granulocyte % 73.4 % N 38-83 Lymphocyte % 19.0 % Low 25-47 Monocyte % 5.1 % N 1-9 Eosinophil % 1.5 % N 0-6 Basophil % 1.0 % N 0-2 Nucleated Red Blood Cells % 0 N Urinalysis Profile 02/25/2015 [facility] Urine Color Yellow N [address] [place] [address] [phone] Urine Appearance Clear N Urine Specific May 1.012 N 1.010-1.030 Urine pH 7.0 N 5-9 Urine Urobilinogen Negative N Negative Urine Ketones Negative N Negative Urine Protein Negative N Negative Urine Leukocytes Negative N Negative Urine Blood Negative N Negative Urine Nitrite Negative N Negative Urine Bilirubin Negative N Negative Urine Glucose Negative N Negative Laboratory test 02/25/2015 [facility] Lactic Acid 0.9 mmol/L N 0.5-2.2 finding [address] [place] [address] [phone] Troponin-I (TnI) 0.00 ng/mL N <0.03 22 TSH (Thyroid Stim Horm) 0.41 ?IU/mL N 0.34-5.60 Comp Metabolic Panel 02/25/2015 [facility] Sodium 130 mmol/L Low 133-145 [address] [place] [address] [phone] Potassium 3.8 mmol/L N 3.5-5.0 Chloride 98 mmol/L Low 101-111 Glucose 120 mg/dL High 70-100 Blood Urea Nitrogen 16 mg/dL N 6-24 Calcium 9.1 mg/dL N 8.6-10.3 Total Protein 6.6 g/dL N 6.4-8.9 Albumin 4.2 g/dL N 3.2-5.2 Globulin 2.4 g/dL N 2-4 Albumin/Globulin Ratio 1.8 N 1-3 Total Bilirubin 0.50 mg/dL N 0.2-1.0 Alkaline Phosphatase 70 U/L N 34-104 Alt 27 U/L N 7-52 Ast 33 U/L N 13-39 Co2 Carbon Dioxide 26 mmol/L N 22-32 Anion Gap 6 mmol/L N 2-11 Creatinine 1.11 mg/dL N 0.67-1.17 BUN/Creatinine Ratio 14.4 N 8-20 Egfr Non- 70.1 N >60 Egfr 90.2 N >60 23 Laboratory test 02/25/2015 [facility] Magnesium 2.1 mg/dL N 1.9-2.7 finding [address] [place] [address] [phone] Laboratory test 03/24/2013 [facility] PSA Diagnostic 0.4 ng/mL 0-4.0 24 finding [address] [place] [address] [phone] Basic Metabolic 03/24/2013 [facility] Sodium 134 mmol/L 133- 145 Panel [address] [place] [address] [phone] Potassium 3.8 mmol/L 3.5-5.0 Chloride 105 mmol/L 101-111 Co2 Carbon Dioxide 20.0 mmol/L Low 22-32 Anion Gap 9.0 mmol/L 2-11 Glucose 80 mg/dL 70-100 Blood Urea Nitrogen 15 mg/dL 6-24 Creatinine 1.10 mg/dL 0.50-1.40 BUN/Creatinine Ratio 13.6 8-20 Calcium 10.0 mg/dL High 8.1-9.9 Egfr Non- 71.4 >60 Egfr 91.9 >60 25 Protein 03/24/2013 [facility] Total 7.7 g/dL 6.3 - Electrophoresis [address] Protein(Pep) 7.9 [place] [address] [phone] Albumin 4.2 g/dL 3.4-4.7 Alpha-1 Globulin 0.2 g/dL 0.1-0.3 Alpha-2 Globulin 1.0 g/dL 0.6-1.0 Beta Globulin 1.2 g/dL 0.7-1.2 Gamma Globulin 1.1 g/dL 0.6-1.6 Albumin/Globulin Ratio 1.19 Impression See Comment 26 Laboratory test 03/24/2013 [facility] TSH (Thyroid 0.39 0.34- 5.[address] Stimulating miu/[place] [address] Horm) [phone] Testosterone 290.0 ng/dL 175-781 CBC Auto Diff 03/24/2013 [facility] White Blood 7.8 10^3/uL 4.8-10.[address] [place] [address] [phone] Red Blood Count 4.89 10^6/uL 4.0-5.4 Hemoglobin [...] Red Blood Cells % 0.1 Laboratory test 03/24/2013 [facility] Erythrocyte Sed 8 mm/Hr 0-[address] Rate [place], [place] [address] [phone] 1 Test Performed by: [facility] - [facility] [address] [place] [address] 2 No evidence of antibodies to B. burgdorferi detected. False negative results may occur in recently infected patients (<=2 weeks) due to low or undetectable antibody levels to B. burgdorferi. If recent exposure is suspected, a second sample should be collected and tested in 2-4 weeks. Test Performed by: [facility] - [facility] [address] [place] [address] 3 Normal Range 180 to 914 Indeterminate Range 145 to 180 Deficient Range <145 4 Desirable: <150 Borderline High: 150-199 High: 200-499 Very High: >500 5 Desirable: <200 Borderline High: 200-239 High: >239 6 Low: <40 Desirable: 40-60 High: >60 7 Desirable: <100 Near Optimal: 100-129 Borderline High: 130-159 High: 160-189 Very High: >189 8 Because ethnic data is not always readily [...] 15-29 5 Kidney failure <15 (or dialysis) 9 Presumptive Positive Presumptive positive results are unconfirmed. 10 Presumptive Positive Presumptive positive results are unconfirmed. 11 The urine specimen was tested at the listed cutoffs: Drug class test level (ng/mL) Amphetamines 500 Barbiturates 200 Benzodiazepine metabolites 200 Cocaine metabolites 150 Cannabinoids 50 Opiates 300 Pcp 25 Specimen was received without chain of custody. Results should be used for medical purposes only. 12 Because ethnic data is not always readily [...] 15-29 5 Kidney failure <15 (or dialysis) 13 Reference Range and Interpretation: TnI (ng/mL) Interpretation Less Than 0.03 ng/mL Not supportive of diagnosis of [place] 0.03 - 0.50 ng/mL Indeterminate: suggest serial studies if clinically indicated. Greater than 0.5 ng/mL Consistent with diagnosis of NH 14 Therapeutic concentration: <50 ug/mL Toxic concentration: >120 ug/mL 15 Presumptive Positive Presumptive positive results are unconfirmed. 16 The urine specimen was tested at the listed cutoffs: Drug class test level (ng/mL) Amphetamines 500 Barbiturates 200 Benzodiazepine metabolites 200 Cocaine metabolites 150 Cannabinoids 50 Opiates 300 Pcp 25 Specimen was received without chain of custody. Results should be used for medical purposes only. 17 SEE RESULT BELOW Name: SERGE SAVAGE : [address]: Dia Vu MD Acct: [id number] Unit: [id number] AGE: 50 Location: ED Re08/27/15 SEX: M Status: REG ER SPEC: [id number] IVONNE: 08/27/15-[address] [facility] [address]: Israel ROGERS REQ: [id number] RECD: 08/27/15 STATUS: DARIEN SINGER DR: Todd Vu MD _ SOURCE: NASAL SPDESC: ORDERED: Flu A B Request Procedure Result Reported Site Rapid Influenza A B Request Final 08/27/15- 1624 ML Specimen received for Influenza A/B Molecular testing * ML - MAIN LAB ([facility]) . END OF REPORT * ML=Testing performed at Main Lab DEPARTMENT OF PATHOLOGY, [address] [place] [address] Tramaine Epstein M.D. Director [facility] # [id number] 18 SEE RESULT BELOW Name: SERGE SAVAGE : [address]: Dia Vu MD Acct: [id number] Unit: [id number] AGE: 50 Location: ED Re08/27/15 SEX: M Status: REG ER SPEC: [id number] IVONNE: 08/27/[address]: Israel ROGERS REQ: [id number] RECD: 08/27/15 STATUS: DARIEN SINGER DR: Todd Vu MD _ SOURCE: THROAT SPDESC: ORDERED: Strep A Request Procedure Result Reported Site Rapid Strep A Request Final 08/27/15- 1655 ML Specimen received for Rapid Strep A Molecular testing * ML - MAIN LAB ([facility]) . END OF REPORT * ML=Testing performed at Main Lab DEPARTMENT OF PATHOLOGY, [address] [place] [address] Tramaine Epstein M.D. Director [facility] # [id number] 19 Transport Truck Driver: [id number] GUILLERMO BERGER 20 Transport Truck Driver: [id number] JASON ALVAREZ The district resource officer and regulatory agencies both recommend that a throat culture for beta strep be performed if a Rapid Group A Strep assay yields a negative result. Therefore a culture will be automatically performed on all negative samples. 21 SEE RESULT BELOW Name: SERGE SAVAGE : [address]: Dia Vu MD Acct: [id number] Unit: [id number] AGE: 50 Location: ED Re08/27/15 SEX: M Status: DEP ER SPEC: [id number] IVONNE: 08/27/15-[address]: Dia Vu MD REQ: [id number] RECD: 08/27/15 STATUS: DARIEN SINGER DR: Todd Bravo MD _ SOURCE: THROAT SPDESC: ORDERED: Throat Beta Str Procedure Result Reported Site Throat Beta Strep Culture Final 08/29/15- 0956 ML Negative For Group A Beta Streptococcus * ML - MAIN LAB ([facility]) . END OF REPORT * ML=Testing performed at Main Lab DEPARTMENT OF PATHOLOGY, [address] [place] [address] Tramaine Epstein M.D. Director [facility] # [id number] 22 Reference Range and Interpretation: TnI (ng/mL) Interpretation Less Than 0.03 ng/mL Not supportive of diagnosis of [place] 0.03 - 0.50 ng/mL Indeterminate: suggest serial studies if clinically indicated. Greater than 0.5 ng/mL Consistent with diagnosis of NH 23 Because ethnic data is not always readily [...] 15-29 5 Kidney failure <15 (or dialysis) 24 Serum levels of PSA measured using the [employer] DXI Hybritech immunoassay should not be interpreted [...] methods or kits cannot be used interchangeably. 25 Because ethnic data is not always readily [...] 15-29 5 Kidney failure <15 (or dialysis) 26 RESULT: No apparent monoclonal protein on serum electrophoresis. Test Performed by: [place] [address] Wellness Program Coordinator: Daron Yung III, M.D. Procedures Date Code Description Status 04/17/2018 40746 EEG Recording Awake & Drowsy Completed 05/03/2016 15781 EEG Recording Awake & Drowsy Completed 03/04/2015 57614 Inject/Drain Joint/Bursa Major W/O US Completed 04/28/2013 181439018 Bone Mineral Density Test Completed 10/30/2009 23670 Insert Non-Tunneled Venous Catether Completed Encounters Type Date Location Provider Dx Diagnosis Office Visit 04/21/2018 [facility] Susan Rivero MD F41.9 Anxiety disorder, 3:00p Medicine - [address] M54.5 Low back pain R03.0 Elevated blood-pressure reading, w/o diagnosis of htn Office Visit 02/20/2018 2:40p [facility] Todd Lin G40.89 Other seizures Gerson - Eunice Bravo M.D.,[facility] Rd A69.20 Lyme disease, unspecified F41.9 Anxiety disorder, unspecified Office Visit 01/03/2018 [facility] Hai M54.16 Radiculopathy, 9:40a Gerson Tilley M.D. lumbar region [address] M54.16 Radiculopathy, lumbar region Office Visit 12/27/2017 [facility] Alondra Valles M54.16 Radiculopathy, 10:00a Gerson Tilley M.D. lumbar region [address] Office Visit 11/26/2017 [facility] Todd Lin M54.5 Low back pain 1:40p Gerson Bravo M.D.,FACP [place] F41.9 Anxiety disorder, unspecified Office Visit 09/11/2016 [facility] Todd Lin M65.872 Other synovitis and 10:05a Gerson Bravo M.D.,FACP tenosynovitis, left [place] ankle and foot F41.9 Anxiety disorder, unspecified Office Visit 08/23/2016 Orthopedic Manjinder M65.872 Other synovitis and 10:30a [facility] tenosynovitis, left C.M.A. ankle and foot Office Visit 07/31/2016 Orthopedic Manjinder M79.672 Pain in left foot 10:00a [facility] C.M.A. S61.001A Unsp open wound of right thumb w/o damage to nail, init Office Visit 07/25/2016 4:20p [facility] Todd Lin M67.472 Ganglion , left Gerson Bravo M.D.,FACP ankle and foot [address] Office Visit 05/11/2016 4:00p [facility] Alondra Lin F41.9 Anxiety disorder, Gerson Bravo M.D.,FACP unspecified [address] R07.89 Other chest pain G40.89 Other seizures Office Visit 05/04/2016 12:50p [facility] Tatianna Chow, R07.9 Chest pain , Assoc,pc N.P. unspecified Hospitalists M62.838 Other muscle spasm F41.9 Anxiety disorder, unspecified F17.201 Nicotine dependence, unspecified, in remission Office Visit 05/03/2016 12:49p [facility] Bobo R07.9 Chest pain, Assoc,pc MD Jeancarlos unspecified Hospitalists M62.838 Other muscle spasm F41.9 Anxiety disorder, unspecified F17.201 Nicotine dependence, unspecified, in remission Office Visit 04/10/2016 4:40p [facility] Alondra Lin K40.91 Unilateral Gerson Bravo M.D.,FACP inguinal hernia, [place] w/o obst or gangrene, recurrent Office Visit 03/27/2016 11:30a [facility] Todd Lin G40.89 Other seizures Gerson Bravo M.D.,FACP [place] T43.215A Advrs effect of slctv seroton/norepineph reup inhibtr, init Office Visit 03/06/2016 2:20p [facility] Todd Lin F43.22 Adjustment Gerson Bravo M.D.,FACP disorder with [place] anxiety Office Visit 01/23/2016 11:00a [facility] Aric Foss, CALL CENTER RN F43.22 Adjustment Medicine - [place] disorder with Rd anxiety Office Visit 07/05/2015 10:10a [facility] Todd Lin Z00.00 Encntr for Gerson Bravo M.D.,FACP general adult [place] medical exam w/o abnormal findings F52.21 Male erectile disorder F43.22 Adjustment disorder with anxiety Z71.7 Human immunodeficiency virus [HIV] counseling Z12.11 Encounter for screening for malignant neoplasm of colon Z71.6 Tobacco abuse counseling Office Visit 05/03/2015 9:10a [facility] Todd Lin N52.1 Erectile Gerson Bravo M.D.,FACP dysfunction due [place] to diseases classified elsewhere S61.011A Laceration w/o fb of right thumb w/o damage to nail, init Office Visit 03/04/2015 2:30p Orthopedic Diana 715.11 Osteoarthrosis [facility] Mahmood Localized Prim [place] Shoulder Region 719.41 Pain Joint Shoulder Region 726.10 Bursae & Tendon Disorders Shoulder Region Unspec 726.2 Shoulder Region Affections Other Not Elsewhere Class Office Visit 02/22/2015 11:40a [facility] Bakari Conway, 719.41 Pain Joint Gerson Dawson M.D. Shoulder Region Rd Office Visit 2015 1:00p Orthopedic Reginald 840.8 Sprains & Services Of [place] Cotton M.D. Strains Shoulder & Upper Arm Other Spec Sites 840.8 Sprains & Strains Shoulder & Upper Arm Other Spec Sites 728.85 Spasm Muscle 728.85 Spasm Muscle Office Visit 12/30/2014 4:40p [facility] Todd Lin 840.8 Sprains & Strains Gerson Bravo M.D.,FACP Shoulder & Upper [address] Arm Other Spec Sites Office Visit 11/11/2014 1:40p [facility] Hai 466.0 Bronchitis Acute Medicine Willie Tilley M.D. [address] 807.02 FX Ribs Closed Two Office Visit 10/08/2014 10:30a [facility] Dustin Thorne, 807.02 FX Ribs Closed Two Medicine - [place] CALL CENTER RN Rd Office Visit 07/20/2014 11:10a [facility] Todd Lin 780.52 Insomnia Medicine - [place], Unspecified Dom Akers,FACP 724.2 Lumbago V73.99 Screening Examination Viral Disease Unspec V65.44 Human Immunodeficiency Virus (HIV) Counseling Office Visit 02/12/2014 2:20p [facility] Todd Bravo, 724.2 Lumbago Medicine - Dom Akers,FACP 305.1 Tobacco Use Disorder Office Visit 12/14/2013 11:40a [facility] Zeferino Lomas 724.2 Lumbago Gerson Naik M.D. [place] Office Visit 09/17/2013 11:50a [facility] Todd Lin 724.2 Lumbago Dom West M.D.,FACP Office Visit 09/02/2013 2:20p [facility] Todd Lin 724.2 Lumbago Dom West M.D.,FACP Office Visit 04/17/2013 9:40a [facility] Todd Lin 733.13 FX Pathologic Gerson Bravo Vertebrae Dom Akers,FACP 401.1 Hypertension Benign 275.42 Hypercalcemia Office Visit 03/16/2013 3:00p [facility] Todd Lin 733.13 FX Pathologic Gerson Bravo M.D.,FACP Vertebrae Dom 401.1 Hypertension Benign v04.81 Need For Prophylactic Vaccination & Inoculation/Influenza Office Visit 11/03/2009 12:30a [facility] Forrest Mac, 584.9 Acute Kidney Assoc,jase Akers Failure, Hospitalists Unspecified Office Visit 11/02/2009 12:15a [facility] Forrest Mac, 584.9 Acute Kidney Assoc,jase PittsDEwelina Failure, Hospitalists Unspecified Office Visit 10/31/2009 12:30a [facility] Sincere Giang 584.9 Acute Kidney Assoc,jase Akers Failure, Hospitalists Unspecified 276.7 Hyperpotassemia Office Visit 10/30/2009 12:15a [facility] Bianca Staley, 276.2 Acidosis Assoc,jase Hospitalists Delphine 584.9 Acute Kidney Failure, Unspecified 276.7 Hyperpotassemia Plan of Treatment Future Appointment(s):07/01/2018 3:00 pm - Susan Rivero MD at [facility] Medicine - [address]05/22/2018 - Todd Bravo M.D.,FACPM54.16 Radiculopathy , lumbar regionNew Therapy:Physical TherapyComments:Follow up with physical therapy as discussed. Discontinue Hydrocodone/Acetaminophen. Begin taking Tramadol as needed. Continue taking other medications as prescribed.G40.89 Other seizuresNew Xrays:MRI Brain W/O, Ordered: 05/22/18Comments:Complete MRI of brain as discussed.F41.9 Anxiety disorder, unspecifiedComments:Continue taking current medications as prescribed. Follow up with mental health as planned.
--- OUTSIDE RECORDS SUMMARY | 2018-05-28 12:45 | XMS REPORT | Continuity of Care Document ---
:1965 External Reference #:[id number] Author Name Serina Warner Care Team Providers Name Role Phone Todd Bravo MD Primary Care Physician Unavailable Payers Type Date Identification Numbers Payment Provider Subscriber Policy Number: [id number] [employer] Medicaid Serge Savage PayID: [id number] [address] [address] [place] [address] Expires: 2017 Policy Number: [id number] Medicaid Serge Savage Group Name: 1 1 [address] PayID: [id number] [place] [address] Onset: 2014 Policy Number: [id number] [facility] Insurance Fund Serge Savage PayID: [id number] [address] [address] [place] [address] Advance Directives Description No Information Available Problems [...] Occupation Disabled 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 [facility] 10/11 Tylenol With 07/31 Hx Tablets 300-30mg 8tabs 1 tab by M79.672 Manjinder Codeine #3 mouth every Jose Miguel, - 4 hours as M.DEwelina 08/09 needed pain Hydrocodone-Aceta 07/25 Hx Tablets 7.5-325mg 30tab 1 tab by S22.49xA Todd minophen /2016 s mouth q6 DEwelina Bravo, - hours as M.DEwelina,[facility] 08/09 needed pain Xanax 05/11 Hx Tablets 0.5mg 20tab 1 tab 12 h F43.22 s as needed Willie Farrar M.D.,[facility] 04/21 Sertraline HCL 03/06 Hx Tablets 50mg 30tab 1/2 tab F43.22 s daily for 10 D. Shelly, - days then 1 M.DEwelina,FACP 03/27 by mouth /2015 every day Lexapro 01/22 Hx Tablets 20mg 30tab 1 by mouth F43.22 Aric s every day Kyrgyz, - INVESTIGATOR 03/06 Xanax 01/22 Hx Tablets 0.25mg 30tab take 1 F43.22 s tablet by Delia Bravo, - mouth twice M.D.,[facility] 11 a day only as needed; Lorazepam 11/08 Hx Tablets 1mg 10tab 1-2 tab at s hs as needed - for anxiety 01/22 Diazepam 07/05 Hx Tablets 10mg 10tab 1/2-1 tab po F43.22 s qd prn Willie Farrar M.D.,[facility] 01/22 Viagra 05/03 Hx Tablets 50mg 7tabs 1 by mouth N52.1 as needed Willie Farrar M.D.,[facility] 04/21 Diazepam 05/03 Hx Tablets 10mg 10tab 1/2-1 tab po N52.1 s qd prn Willie Farrar M.D.,[facility] 07/05 Soma 03/04 Hx Tablets 250mg 40tab [...] as needed, M.D. 05/03 take with meals [place] 01/11 Hx Tablets 5-325mg 40tab 1-2 by mouth s daily as Yury, - needed M.D. 05/03 Celecoxib 12/30 Hx Capsules 200mg 28cap 1 tab PO bid 840.8 s for 2 wks Delia Bravo, - (work MGibran,[facility] 01/11 injury) Azithromycin 11/11 Hx Tablets 250mg 6tabs 2 tab today 466.0 and then Pachikara - 1tab daily , M.D. 12/29 Prednisone 11/11 Hx Tablets 10mg 30tab 5tabx 466.0 s 2days,4 Pachikara - [id number] , M.D. 12/29 0xdlf2acep, onht6ajok,1t abxday. Hydrocodone-Aceta 10/08 Hx Tablets 7.5-325mg 20tab 1 tab by 807.02 Chewelah s mouth q6 Pachikara - hours as , M.DEwelina 12/29 needed Trazodone HCL 07/20 Hx Tablets 50mg 30tab Take One G47.00 Todd s Tablet By Delia Braov, - Mouth Every M.DEwelina,[facility] 03/06 Night AT Bedtime Tramadol HCL ER 02/12 Hx Tablets 100mg 90tab 1-2 tabs 724.2 Todd (Biphasic) ER 24HR s twice a day Willie Farrar M.D.,[facility] 07/20 Tramadol HCL 02/12 Hx Tablets 50mg 30tab 1-2 three M54.5 Todd s times a day Delia Bravo - as needed MGibran,[facility] 02/20 mdd Chantix Starting 09/17 Hx Tablets 0.5mg X 1mon as directed 780.52 Padma Post Month Paulo 11 & 1 mg Willie Farrar X 42 M.DEwelina,[facility] 07/20 Lisinopril-Hydroc 09/14 Hx Tablets 10-12.5mg 90tab 1 by mouth Padma Post hlorothiazide s every day Willie Farrar M.D.,[facility] 07/20 Oxycodone/Acetami 09/02 Hx Tablets 7.5-325mg 60tab 1 po qid prn 724.2 Todd nophen s Willie Farrar M.D.,FACP 09/17 Cyclobenzaprine 09/02 Hx Tablets 10mg 30tab take 1 724.2 Todd HCL s tablet tid D. Gans, - as needed M.D.,FACP 09/17 Vitamin D 04/17 Hx Capsules 1000Unit 30cap po qd 275.42 Todd s Willie Farrar M.D.,[facility] 11/10 Tylenol Extra 03/16 Hx Tablets 500mg [...] tablet by Delia Bravo, - mouth four M.D.,[facility] 07/20 times daily /2014 as needed Chlordiazepoxide Hx Capsules 25mg pt takes two Unknown HCL /0000 tabs in am - and two tabs 09/11 in /2016 Medications Administered in Office Medication Date Status Form Strength Qnty SIG Indications Ordering Provider Depomedrol Administered Injection Diana 80MG 015 Delphine Mahmood Immunizations CPT Code Status Date Vaccine Lot # [id number] Given 03/16/2013 Flu Vaccine Split Virus Preservative Free For [id number] Indiv 3Yr Older Vital Signs Date Vital [...] Result H/L Range Note Thyroid Function 04/17/2018 [facility] Thyroid Stim 1.6 mIU/L 0.3-4.[address] [place] [address] [place] [address] [phone] Laboratory test 03/19/2018 [facility] Lyme Disease Negative Negative [address] [place] [address] [phone] Erythrocyte Sed Rate 0 mm/Hr N 0-20 C Reactive Protein 28.35 mg/L High <8.01 TSH (Thyroid Stim Horm) 0.17 mcIU/mL Low 0.34-5.60 Vitamin B12 221 pg/mL N 180-914 3 Lipid Profile 02/17/2018 [facility] Triglycerides 86 mg/dL 4 (Trig/Chol/HDL) [address] [place] [address] [phone] Cholesterol 191 mg/dL 5 HDL Cholesterol 81.9 mg/dL 6 LDL Cholesterol 92 mg/dL 7 Basic Metabolic Panel 02/17/2018 [facility] Sodium 137 mmol/L N 135-[address] [place] [address] [phone] Potassium 4.3 mmol/L N 3.5-5.0 Chloride 107 mmol/L N 101-111 Co2 Carbon Dioxide 25 mmol/L N 22-32 Anion Gap 5 mmol/L N 2-11 Glucose 94 mg/dL N 70-100 Blood Urea Nitrogen 14 mg/dL N 6-24 Creatinine 0.91 mg/dL N 0.67-1.17 BUN/Creatinine Ratio 15.4 N 8-20 Calcium 9.3 mg/dL N 8.6-10.3 Egfr Non- 87.2 >60 Egfr 105.5 >60 8 CBC Auto Diff 01/23/2016 [facility] White Blood 7.2 10^3/uL N 3.5-10.[address] [place] [address] [phone] Red Blood Count 5.15 10^6/uL N 4.0-5.4 [...] Cells % 0.3 N Urinalysis Profile 01/23/2016 [facility] Urine Color Yellow N [address] [place] [address] [phone] Urine Appearance Clear N Urine Specific Ferguson 1.015 N 1.010-1.030 Urine pH 7.0 N 5-9 Urine Urobilinogen Negative N Negative Urine Ketones 1+ Abnormal Negative Urine Protein Negative N Negative Urine Leukocytes Negative N Negative Urine Blood Negative N Negative Urine Nitrite Negative N Negative Urine Bilirubin Negative N Negative Urine Glucose Negative N Negative Urine Drug 01/23/2016 [facility] Amphetamine Ur None Detected N None Detect SCR ED & [address] [place] [address] [phone] Barbiturates Urine Screen None Detected N None Detect Benzodiazepine Urine Screen Presumptive Posi <SEE NOTE> Abnormal None Detect 9 Urine Cannabinoids Screen Presumptive Posi <SEE NOTE> Abnormal None Detect 10 Urine Cocaine Screen None Detected N None Detect Urine Opiates Screen None Detected N None Detect Urine Phencyclidine Screen None Detected N None Detect 11 Comp Metabolic Panel 01/23/2016 [facility] Sodium 136 mmol/L N 133-[address] [place] [address] [phone] Potassium 3.8 mmol/L N 3.5-5.0 Chloride 104 [...] 110.2 N >60 12 Laboratory test 01/23/2016 [facility] Troponin-I (TnI) 0.00 ng/ mL N <0.03 [address] [place] [address] [phone] Acetaminophen < 15 g/mL N 14 Alcohol < 10 mg/dL N <10 Salicylate < 2.50 mg/dL N <30 TSH (Thyroid Stim Horm) 0.52 mcIU/mL N 0.34-5.60 Urinalysis Profile 01/22/2016 [facility] Urine Color Yellow N [address] [place] [address] [phone] Urine Appearance Clear N Urine Specific Ferguson 1.016 N 1.010-1.030 Urine pH 5.0 N 5-9 Urine Urobilinogen Negative N Negative Urine Ketones Negative N Negative Urine Protein Negative N Negative Urine Leukocytes Negative N Negative Urine Blood Negative N Negative Urine Nitrite Negative N Negative Urine Bilirubin Negative N Negative Urine Glucose Negative N Negative Urine Drug 01/22/2016 [facility] Amphetamine Ur None Detected N None Detect SCR ED & [address] [place] [address] [phone] Barbiturates Urine Screen None Detected N None Detect Benzodiazepine Urine Screen None Detected N None Detect Urine Cannabinoids Screen Presumptive Posi <SEE NOTE> Abnormal None Detect 15 Urine Cocaine Screen None Detected N None Detect Urine Opiates Screen None Detected N None Detect Urine Phencyclidine Screen None Detected N None Detect 16 Laboratory test 08/27/2015 [facility] Rapid Influenza SEE RESULT [address] [place] [address] [phone] Rapid Strep A SEE RESULT BELOW 18 Rapid 08/27/2015 [facility] Influenza A POSITIVE Abnormal Negative 19 Influenza A & [address] [place] [address] [phone] Influenza B Molecular NEGATIVE N Negative Laboratory test 08/27/2015 [facility] Rapid Strep Negative N Negative [address] [place] [address] [phone] Throat-Beta Strept SEE RESULT BELOW 21 CBC Auto Diff 02/25/2015 [facility] White Blood 6.3 10^3/uL N 4.8-10.[address] [place] [address] [phone] Red Blood Count 4.65 10^6/uL N 4.0-5.4 [...] Cells % 0 N Urinalysis Profile 02/25/2015 [facility] Urine Color Yellow N [address] [place] [address] [phone] Urine Appearance Clear N Urine Specific Ferguson 1.012 N 1.010-1.030 Urine pH 7.0 N 5-9 Urine Urobilinogen Negative N Negative Urine Ketones Negative N Negative Urine Protein Negative N Negative Urine Leukocytes Negative N Negative Urine Blood Negative N Negative Urine Nitrite Negative N Negative Urine Bilirubin Negative N Negative Urine Glucose Negative N Negative Laboratory test 02/25/2015 [facility] Lactic Acid 0.9 mmol/L N 0.5-2.2 finding [address] [place] [address] [phone] Troponin-I (TnI) 0.00 ng/mL N <0.03 22 TSH (Thyroid Stim Horm) 0.41 ?IU/mL N 0.34-5.60 Comp Metabolic Panel 02/25/2015 [facility] Sodium 130 mmol/L Low 133-145 [address] [place] [address] [phone] Potassium 3.8 mmol/L N 3.5-5.0 Chloride 98 [...] 90.2 N >60 23 Laboratory test 02/25/2015 [facility] Magnesium 2.1 mg/dL N 1.9-2.7 finding [address] [place] [address] [phone] Laboratory test 03/24/2013 [facility] PSA Diagnostic 0.4 ng/mL 0-4.0 24 finding [address] [place] [address] [phone] Basic Metabolic 03/24/2013 [facility] Sodium 134 mmol/L 133- 145 Panel [address] [place] [address] [phone] Potassium 3.8 mmol/L 3.5-5.0 Chloride 105 mmol/L 101-111 Co2 Carbon Dioxide 20.0 mmol/L Low 22-32 Anion Gap 9.0 mmol/L 2-11 Glucose 80 mg/dL 70-100 Blood Urea Nitrogen 15 mg/dL 6-24 Creatinine 1.10 mg/dL 0.50-1.40 BUN/Creatinine Ratio 13.6 8-20 Calcium 10.0 mg/dL High 8.1-9.9 Egfr Non- 71.4 >60 Egfr 91.9 >60 25 Protein 03/24/2013 [facility] Total 7.7 g/dL 6.3 - Electrophoresis [address] Protein(Pep) 7.9 [place] [address] [phone] Albumin 4.2 g/dL 3.4-4.7 Alpha-1 Globulin 0.2 g/dL 0.1-0.3 Alpha-2 Globulin 1.0 g/dL 0.6-1.0 Beta Globulin 1.2 g/dL 0.7-1.2 Gamma Globulin 1.1 g/dL 0.6-1.6 Albumin/Globulin Ratio 1.19 Impression See Comment 26 Laboratory test 03/24/2013 [facility] TSH (Thyroid 0.39 0.34- 5.[address] Stimulating miu/[place] [address] Horm) [phone] Testosterone 290.0 ng/dL 175-781 CBC Auto Diff 03/24/2013 [facility] White Blood 7.8 10^3/uL 4.8-10.[address] [place] [address] [phone] Red Blood Count 4.89 10^6/uL 4.0-5.4 Hemoglobin [...] Blood Cells % 0.1 Laboratory test 03/24/2013 [facility] Erythrocyte Sed 8 mm/Hr 0-[address] Rate [place], [place] [address] [phone] 1 Test Performed by: [facility] [address] [place] [address] 2 No evidence of antibodies to B. burgdorferi detected. False negative results may occur in recently infected patients (<=2 weeks) due to low or undetectable antibody levels to B. burgdorferi. If recent exposure is suspected, a second sample should be collected and tested in 2-4 weeks. Test Performed by: [facility] [address] [place] [address] 3 Normal Range 180 to 914 Indeterminate [...] 0.03 ng/mL Not supportive of diagnosis of [place] 0.03 - 0.50 ng/mL Indeterminate: suggest serial studies if clinically indicated. Greater than 0.5 ng/mL Consistent with diagnosis of [place] 14 Therapeutic concentration: <50 ug/mL Toxic concentration: [...] [address]: Dia Vu MD Acct: [id number] Unit: [id number] AGE: 50 Location: ED Re08/27/15 SEX: M Status: REG ER SPEC: [id number] IVONNE: 08/27/15-1610 [facility] DR: Israel ROGERS REQ: [id number] RECD: 08/27/15 STATUS: DARIEN SINGER DR: Todd Vu MD _ SOURCE: NASAL SPDESC: ORDERED: Flu A B Request Procedure Result Reported Site Rapid Influenza A B Request Final 08/27/15- 1624 ML Specimen received for Influenza A/B Molecular testing * ML - MAIN LAB ([facility]) . END OF REPORT * ML=Testing performed at Main Lab DEPARTMENT OF PATHOLOGY, [address] [place] [address] Tramaine Epstein M.D. Director [facility] # [id number] 18 SEE RESULT BELOW Name: SERGE SAVAGE : [address]: Dia Vu MD Acct: [id number] Unit: [id number] AGE: 50 Location: ED Re08/27/15 SEX: M Status: REG ER SPEC: [id number] IVONNE: 08/27/[address]: Israel ROGERS REQ: [id number] RECD: 08/27/15 STATUS: DARIEN SINGER DR: Todd Vu MD _ SOURCE: THROAT SPDESC: ORDERED: Strep A Request Procedure Result Reported Site Rapid Strep A Request Final 08/27/15- 1655 ML Specimen received for Rapid Strep A Molecular testing * ML - MAIN LAB ([facility]) . END OF REPORT * ML=Testing performed at Main Lab DEPARTMENT OF PATHOLOGY, [address] [place] [address] Tramaine Epstein M.D. Director [facility] # [id number] 19 Network Support Manager: [id number] GUILLERMO BERGER 20 Network Support Manager: [id number] JASON ALVAREZ The full stack engineer and regulatory agencies both recommend that a throat culture for beta strep be performed if a Rapid Group A Strep assay yields a negative result. Therefore a culture will be automatically performed on all negative samples. 21 SEE RESULT BELOW Name: SERGE SAVAGE : [address]: Dia Vu MD Acct: [id number] Unit: [id number] AGE: 50 Location: ED Re08/27/15 SEX: M Status: DEP ER SPEC: [id number] IVONNE: 08/27/15-[address]: Dia Vu MD REQ: [id number] RECD: 08/27/15 STATUS: DARIEN SINGER DR: Todd Bravo MD _ SOURCE: THROAT SPDESC: ORDERED: Throat Beta Str Procedure Result Reported Site Throat Beta Strep Culture Final 08/29/15- 0956 ML Negative For Group A Beta Streptococcus * ML - MAIN LAB ([facility]) . END OF REPORT * ML=Testing performed at Main Lab DEPARTMENT OF PATHOLOGY, [address] [place] [address] Tramaine Epstein M.D. Director [facility] # [id number] 22 Reference Range and Interpretation: TnI (ng/mL) Interpretation Less Than 0.03 ng/mL Not supportive of diagnosis of [place] 0.03 - 0.50 ng/mL Indeterminate: suggest serial studies if clinically indicated. Greater than 0.5 ng/mL Consistent with diagnosis of [place] 23 Because ethnic data is not always [...] levels of PSA measured using the [employer] DXI Hybritech immunoassay should not be interpreted [...] protein on serum electrophoresis. Test Performed by: [place] [address] Flakeboard Line Tender: Daron Yung III, M.D. Procedures Date Code Description Status 04/17/2018 82695 EEG Recording Awake & Drowsy Completed 05/03/2016 01764 EEG Recording Awake & Drowsy Completed 03/04/2015 77472 Inject/Drain Joint/Bursa Major W/O US Completed 04/28/2013 412912670 Bone Mineral Density Test Completed 10/30/2009 56700 Insert Non-Tunneled Venous Catether Completed Encounters Type Date Location Provider Dx Diagnosis Office Visit 04/21/2018 [facility] Internal Susan Rivero MD F41.9 Anxiety disorder, 3:00p Medicine - [address] M54.5 Low back pain R03.0 Elevated blood-pressure reading, w/o diagnosis of htn Office Visit 02/20/2018 2:40p [facility] Internal Todd Lin G40.89 Other seizures Gerson - Eunice Bravo M.D.,[facility] Rd A69.20 Lyme disease, unspecified F41.9 Anxiety disorder, unspecified Office Visit 01/03/2018 [facility] Internal Hai M54.16 Radiculopathy, 9:40a Gerson Tilley M.D. lumbar region [address] M54.16 Radiculopathy, lumbar region Office Visit 12/27/2017 [facility] Alondra Valles M54.16 Radiculopathy, 10:00a Gerson Tilley M.D. lumbar region [address] Office Visit 11/26/2017 [facility] Internal Todd Lin M54.5 Low back pain 1:40p Gerson Bravo M.D.,FACP [place] F41.9 Anxiety disorder, unspecified Office Visit 09/11/2016 [facility] Internal Todd Lin M65.872 Other synovitis and 10:05a Gerson Bravo M.D.,FACP tenosynovitis, left [place] ankle and foot F41.9 Anxiety disorder, unspecified Office Visit 08/23/2016 Orthopedic Manjinder M65.872 Other synovitis and 10:30a Services Of Delphine Gillespie tenosynovitis, left C.M.A. ankle and foot Office Visit 07/31/2016 Orthopedic Manjinder M79.672 Pain in left foot 10:00a [facility] Delphine Gillespie C.M.A. S61.001A Unsp open wound of right thumb w/o damage to nail, init Office Visit 07/25/2016 4:20p [facility] Internal Todd Lin M67.472 Ganglion , left Gerson Bravo M.D.,FACP ankle and foot [address] Office Visit 05/11/2016 4:00p [facility] Alondra Lin F41.9 Anxiety disorder, Gerson Bravo M.D.,FACP unspecified [address] R07.89 Other chest pain G40.89 Other seizures Office Visit 05/04/2016 12:50p [facility] Tatianna Chow, R07.9 Chest pain , Assoc,pc N.P. unspecified Hospitalists M62.838 Other muscle spasm F41.9 Anxiety disorder, unspecified F17.201 Nicotine dependence, unspecified, in remission Office Visit 05/03/2016 12:49p [facility] Bobo R07.9 Chest pain, Assoc,pc MD Jeancarlos unspecified Hospitalists M62.838 Other muscle spasm F41.9 Anxiety disorder, unspecified F17.201 Nicotine dependence, unspecified, in remission Office Visit 04/10/2016 4:40p [facility] Alondra Lin K40.91 Unilateral Gerson Bravo M.D.,FACP inguinal hernia, [place] w/o obst or gangrene, recurrent Office Visit 03/27/2016 11:30a [facility] Internal Todd Lin G40.89 Other seizures Gerson Bravo M.D.,FACP [place] T43.215A Advrs effect of slctv seroton/norepineph reup inhibtr, init Office Visit 03/06/2016 2:20p [facility] Internal Todd Lin F43.22 Adjustment Gerson Bravo M.D.,FACP disorder with [place] anxiety Office Visit 01/23/2016 11:00a [facility] Internal Aric Foss, INVESTIGATOR F43.22 Adjustment Medicine - [place] disorder with Rd anxiety Office Visit 07/05/2015 10:10a [facility] Internal Todd Lin Z00.00 Encntr for Gerson Bravo M.D.,FACP general adult [place] medical exam w/o abnormal findings F52.21 Male erectile disorder F43.22 Adjustment disorder with anxiety Z71.7 Human immunodeficiency virus [HIV] counseling Z12.11 Encounter for screening for malignant neoplasm of colon Z71.6 Tobacco abuse counseling Office Visit 05/03/2015 9:10a [facility] Internal Todd Lin N52.1 Erectile Gerson Bravo M.D.,FACP dysfunction due [place] to diseases classified elsewhere S61.011A Laceration w/o fb of right thumb w/o damage to nail, init Office Visit 03/04/2015 2:30p Orthopedic Diana 715.11 Osteoarthrosis Services Of Delphine Mahmood Localized Prim [place] Shoulder Region 719.41 Pain Joint Shoulder Region 726.10 Bursae & Tendon Disorders Shoulder Region Unspec 726.2 Shoulder Region Affections Other Not Elsewhere Class Office Visit 02/22/2015 11:40a [facility] Internal Bakari Conway, 719.41 Pain Joint Gerson Dawson M.D. Shoulder Region Rd Office Visit 2015 1:00p Orthopedic Reginald 840.8 Sprains & Services Of [place] Cotton M.D. Strains Shoulder & Upper Arm Other Spec Sites 840.8 Sprains & Strains Shoulder & Upper Arm Other Spec Sites 728.85 Spasm Muscle 728.85 Spasm Muscle Office Visit 12/30/2014 4:40p [facility] Internal Todd Lin 840.8 Sprains & Strains Gerson Bravo M.D.,FACP Shoulder & Upper [address] Arm Other Spec Sites Office Visit 11/11/2014 1:40p [facility] Hai 466.0 Bronchitis Acute Medicine Willie Tilley M.D. [address] 807.02 FX Ribs Closed Two Office Visit 10/08/2014 10:30a [facility] Internal Dustin Thorne, 807.02 FX Ribs Closed Two Medicine - [address] INVE[address] Office Visit 07/20/2014 11:10a [facility] Internal Todd Lin 780.52 Insomnia Medicine - Shelly, Unspecified Dom Akers,FACP 724.2 Lumbago V73.99 Screening Examination Viral Disease Unspec V65.44 Human Immunodeficiency Virus (HIV) Counseling Office Visit 02/12/2014 2:20p [facility] Internal Todd Bravo, 724.2 Lumbago Medicine - Dom Akers,FACP 305.1 Tobacco Use Disorder Office Visit 12/14/2013 11:40a [facility] Internal Zeferino Lomas 724.2 Lumbago Gerson Naik M.D. [place] Office Visit 09/17/2013 11:50a [facility] Internal Todd Lin 724.2 Lumbago Dom West M.D.,FACP Office Visit 09/02/2013 2:20p [facility] Internal Todd Lin 724.2 Lumbago Dom West M.D.,FACP Office Visit 04/17/2013 9:40a [facility] Internal Todd Lin 733.13 FX Pathologic Gerson Bravo Vertebrae Dom Akers,FACP 401.1 Hypertension Benign 275.42 Hypercalcemia Office Visit 03/16/2013 3:00p [facility] Internal Todd Lin 733.13 FX Pathologic Gerson Bravo M.D.,FACP Vertebrae Dom 401.1 Hypertension Benign v04.81 Need For Prophylactic Vaccination & Inoculation/Influenza Office Visit 11/03/2009 12:30a [facility] Forrest Mac, 584.9 Acute Kidney Assoc,jase Akers Failure, Hospitalists Unspecified Office Visit 11/02/2009 12:15a [facility] Forrest Mac, 584.9 Acute Kidney Assoc,jase PittsDEwelina Failure, Hospitalists Unspecified Office Visit 10/31/2009 12:30a [facility] Sincere Giang 584.9 Acute Kidney Assoc,jase Akers Failure, Hospitalists Unspecified 276.7 Hyperpotassemia Office Visit 10/30/2009 12:15a [facility] Bianca Staley, 276.2 Acidosis Assoc,jase Hospitalists Delphine 584.9 Acute Kidney Failure, Unspecified 276.7 Hyperpotassemia Plan of Treatment Future Appointment(s):07/01/2018 3:00 pm - Susan Rivero MD at [facility] Internal Medicine - [address]05/22/2018 - [...]
[2018-05-28 12:55] LABS: ABS Basophils 0 10^3/ul (0-0.2); ABS Eosinophils 0.1 10^3/ul (0-0.6); ABS Monocytes 0.2 10^3/ul (0-0.8); ABS Neutrophils 3.1 10^3/ul (1.5-7.7); ABS Nucleated RBC 0 10^3/ul; Eosinophil % 1.3 %; Hematocrit 39 % (42-52); Hemoglobin 13.3 g/dl (14.0-18.0); Lymphocyte % 22.3 %; Mean Corpuscular HGB Conc 34 g/dl (31-36); Mean Corpuscular Hemoglobin 31 pg (27-31); Mean Corpuscular Volume 92 fL (80-94); Mean Platelet Volume 7.6 fL (7.4-10.4); Nucleated Red Blood Cells % 0; Platelet Count 180 10^3/ul (150-450); Red Blood Count 4.26 10^6/ul (4.00-5.40); Red Cell Distribution Width 14 % (10.5-15); White Blood Count 4.3 10^3/ul (3.5-10.8)
--- NOTE | 2018-05-28 12:59 | ED ---
Neurological HPI - HPI Summary HPI Summary: Patient is a 53 y/o M presenting to ED via ambulance with complaints of witnessed seizure episode. EMS reports tonic clonic seizure, patient was postictal upon arrival. Patient states that he has had four seizures in his life. Patient claims he is not on any medications for seizures, states he has not seen neurologist. EMS reports that seizure happened at work, patient's boss came to check on patient. Patient was seizing at this time. Boss reported that seizure had lasted 3 minutes. However, fire department arrived in less than 3 minutes and had reported that patient had stopped seizing at this point. No incontinence is reported. Patient states that he drink alc around x3 a week, does not drink daily. In the room, patient is alert and oriented x3 but there is some delay with response to questions. PMHx of HTN is reported. On triage, pain is denied, nothing is noted to aggravate/alleviate Sx. Home medications and allergies are reviewed. - History of Current Complaint Chief Complaint: EDSeizure Stated Complaint: SEIZURE Hx Obtained From: Patient Onset/Duration: Sudden Onset, Resolved Timing: Intermittent Episodes Lasting: - 3 minutes per patient's boss Current Severity: None Number of Seizures: 1 - reports 4 in total in life Neurological Deficit Location: Generalized - tonic clonic Pain Intensity: 0 Pain Scale Used: 0-10 Numeric - 0/10 Character: Other: - seizure, postictal Syncope Context: Witnessed, Loss of Consciousness: Yes Frequency: Episodes x___ - 1, Episodes Lasting ____ (in Mins/Days/Weeks/Years) - 3 minutes Syncope Location: All Extremities - tonic clonic Seizure Character: Total-Clonic Aggravating: Nothing Alleviating: Nothing Associated Signs and Symptoms: Positive: Seizure - tonic-clonic; postictal currently - Additional Pertinent History Primary Care Physician: [id number] - Allergy/Home Medications Allergies/Adverse Reactions: Allergies Allergy/AdvReac Type Severity Reaction Status Date / Time No Known Allergies Allergy Verified 11/26/17 11:51 Home Medications: Home Medications Cyanocobalamin TAB* [Vitamin B12 TAB*] 250 mcg PO DAILY 05/28/18 [History Confirmed 05/28/18] Escitalopram (NF) [Lexapro 20 mg (NF)] 20 mg PO DAILY 05/28/18 [History Confirmed 05/28/18] Gabapentin CAP(*) [Neurontin 300 CAP(*)] 600 mg PO TID 05/28/18 [History Confirmed 05/28/18] Triamcinolone 0.5% CREAM(NF) [Triamcinolone 0.5% CREAM*] 1 applic TOPICAL DAILY 05/28/18 [History Confirmed 05/28/18] traMADol TAB* [Ultram*] 50 - 100 mg PO TID 05/28/18 [History Confirmed 05/28/18] PMH/Surg Hx/FS Hx/Imm Hx Endocrine/Hematology History: Denies: Hx Anticoagulant Therapy, Hx Diabetes, Hx Thyroid Disease Cardiovascular History: Denies: Hx Congestive Heart Failure, Hx Deep Vein Thrombosis, Hx Hypertension - PT STATES NOT ON ANY MEDICATION--he was on medication before ( [facility]),, Hx Myocardial Infarction, Hx Pacemaker/ICD, Other Cardiovascular Problems/Disorders Respiratory History: Denies: Hx Asthma, Hx Chronic Obstructive Pulmonary Disease (COPD), Hx Lung Cancer, Hx Pneumonia, Hx Pulmonary Embolism, Other Respiratory Problems/ Disorders GI History: Denies: Hx Gall Bladder Disease, Hx Gastrointestinal Bleed, Hx Ulcer, Hx Urosepsis History: Reports: Hx Renal Disease - 7 years ago, 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 Denies: Hx Kidney Stones Musculoskeletal History: Reports: Hx Back Problems Sensory History: Denies: Hx Hearing Aid Neurological History: Denies: Hx Dementia, Hx Migraine, Hx Seizures, Hx Transient Ischemic Attacks (TIA) Psychiatric History: Reports: Hx Anxiety - He is going through a lot of social stress., Hx Depression, Hx Substance Abuse - 3yrs ago, Rx meds Denies: Hx Panic Disorder, Hx Schizophrenia, Hx Bipolar Disorder - Surgical History Surgery Procedure, Year, and Place: HERNIA REPAIR Infectious Disease History: No Infectious Disease History: Denies: Hx Hepatitis, Hx Human Immunodeficiency Virus (HIV), History Other Infectious Disease, Traveled Outside the [place] in Last 30 Days - Family History Known Family History: Positive: Cardiac Disease - Mother, Other - Lung cancer ( father) Negative: Seizure Disorder, Blood Disorder Family History: NON CONTRIBUTORY - Social History Alcohol Use: Weekly Alcohol Amount: "couple of beer after work" Hx Substance Use: Yes Substance Use Type: Reports: None Hx Tobacco Use: Yes Smoking Status (MU): Current Some Day Smoker Type: Cigarettes Amount Used/How Often: quit jun 2015 Review of Systems Negative: incontinence Neurological: Other - tonic-clonic seizure, currently postictal Positive: Syncope All Other Systems Reviewed And Are Negative: Yes Physical Exam - Summary Physical Exam Summary: VITAL SIGNS: Reviewed. GENERAL: Patient is a well-developed and nourished male who is lying comfortable in the stretcher. Patient is not in any acute respiratory distress. HEAD AND FACE: No signs of trauma. No ecchymosis, hematomas or skull depressions. No sinus tenderness. EYES: PERRLA, EOMI x 2, No injected conjunctiva, no nystagmus. EARS: Hearing grossly intact. Ear canals and tympanic membranes are within normal limits. MOUTH: Oropharynx within normal limits. NECK: Supple, trachea is midline, no adenopathy, no JVD, no carotid bruit, no c- spine tenderness, neck with full ROM. CHEST: Symmetric, no tenderness at palpation LUNGS: Clear to auscultation bilaterally. No wheezing or crackles. CVS: Regular rate and rhythm, S1 and S2 present, no murmurs or gallops appreciated. ABDOMEN: Soft, non-tender. No signs of distention. No rebound no guarding, and no masses palpated. Bowel sounds are normal. EXTREMITIES: FROM in all major joints, no edema, no cyanosis or clubbing. NEURO: Alert and oriented x 3. Patient is in a slightly postictal state, otherwise normal. Speech is normal and follows commands. GCS 15. SKIN: Dry and warm Triage Information Reviewed: Yes Vital Signs On Initial Exam: Initial Vitals Pulse BP Pulse Ox 92 178/108 96 05/28/18 12:21 05/28/18 12:21 05/28/18 12:21 Vital Signs Reviewed: Yes Diagnostics - Vital Signs Vital Signs Temp Pulse Resp BP Pulse Ox 05/28/18 12:27 164/96 05/28/18 12:25 98.4 F 97 16 178/108 97 05/28/18 12:21 92 178/108 96 - Laboratory Result Diagrams: 05/28/18 12:47 05/28/18 12:47 Lab Statement: Any lab studies that have been ordered have been reviewed, and results considered in the medical decision making process. - Radiology CXR Radiology Interpretation Completed By: Radiologist Summary of Radiographic Findings: CXR IMPRESSION: #. Stigmata of obstructive lung disease. No acute pulmonary or cardiac process evident. THIS REPORT WAS REVIEWED BY ED PHYSICIAN. - CT BRAIN CT CT Interpretation Completed By: Radiologist Summary of CT Findings: BRAIN CT IMPRESSION: No intracranial mass or hemorrhage is noted. THIS REPORT WAS REVIEWED BY ED PHYSICIAN. - EKG 1243 Cardiac Rate: NL - RATE OF 86 BPM EKG Rhythm: Sinus Rhythm EKG Comparison: No Significant Change - similar to EKG taken 05/03/16 Summary of EKG Findings: EKG showed sinus rhythm with rate of 86 BPM, no ST elevation, similar to EKG taken 05/03/16 Re-Evaluation - Re-Evaluation First Eval Re-Evaluation Time: 14:30 Comment: The patient also reports that he was taking Ultram in the past for back pain and Dr. Bravo the primary care physician. That this was causing the seizures. Therefore he was changed to Vicodin however the patient reports that he doesn't like the way back of and feels that he doesn't want to be addicted to Vicodin. Second Eval Re-Evaluation Time: 15:10 Comment: Patient reports that he took Tramadol yesterday, developed seizure today. Course/Dx - Course Course Of Treatment: Patient is a 53 y/o M presenting to ED via ambulance with complaints of witnessed seizure episode. EMS reports tonic clonic seizure, patient was postictal upon arrival. Patient states that he has had four seizures in his life. Patient claims he is not on any medications for seizures, states he has not seen neurologist. EMS reports that seizure happened at work, patient's boss came to check on patient. Patient was seizing at this time. Boss reported that seizure had lasted 3 minutes. However, fire department arrived in less than 3 minutes and had reported that patient had stopped seizing at this point. No incontinence is reported. Patient states that he drink alc around x3 a week, does not drink daily. In the room, patient is alert and oriented x3 but there is some delay with response to questions. PMHx of HTN is reported. On triage, pain is denied, nothing is noted to aggravate/alleviate Sx. Home medications and allergies are reviewed. Blood work without any significant abnormality except for slight anemia, sodium 134. Urinalysis is negative for UTI, urine toxicology positive for opiates and cannabinoids. Head CT impression : No intercurrent mass or hemorrhage noted. Chest x-ray impression: Stigmata of obstructive lung disease. No acute pulmonary or cardiac process evident. The patient also reports that he was taking Ultram in the past for back pain and Dr. Bravo the primary care physician was concerned that this was causing the seizures. Therefore he was changed to Vicodin. However the patient reports that he doesn't like the way that it feels and he doesn't want to be addicted to Vicodin. Yesterday he took 1 tablet of Tramadol and today he developed a seizure. At this point I discussed the case with Dr. Abernathy from neurology and she is consulting for this patient. Patient will be signed out to Dr. Kline to follow up the recommendation of Dr. Abernathy. Patient continues to be hemodynamically stable alert and oriented 3. - Diagnoses Provider Diagnoses: Seizure - Physician Notifications Discussed Care Of Patient With: Glendy De Paz Time Discussed With Above Provider: 15:54 Instructed by Provider To: Other - Patient's case was discussed with Dr. De Paz , Dr. De Paz agrees to consult on patient. Discharge - Sign-Out/Discharge Documenting (check all that apply): Sign-Out Patient Signing out patient TO: Pete Kline Receiving patient FROM: Zeferino Brumfield - Discharge Plan Condition: Stable Disposition: HOME Patient Education Materials: Recurrent Seizures in Adults (ED) Forms: *Work Release Referrals: Todd Bravo MD [Primary Care Provider] - 3 Days Glendy De Paz MD [Medical Doctor] - As Soon As Possible Additional Instructions: RETURN TO THE EMERGENCY DEPARTMENT FOR NEW OR WORSENING SYMPTOMS. Please take Clonazepam religiously every day as instructed. - Billing Disposition and Condition Condition: STABLE Disposition: Home - Attestation Statements Document Initiated by Hakeem: Yes Documenting Scribe: JERRI GIBBONS Provider For Whom Hakeem is Documenting (Include Credential): ZEFERINO BRUMFIELD MD Scribe Attestation: JERRI Martinez , silviaed for ZEFERINO BRUMFIELD MD on 05/29/18 at 8648. Scribe Documentation Reviewed: Yes Provider Attestation: The documentation as recorded by the JERRI bates accurately reflects the service I personally performed and the decisions made by me, ZEFERINO BRUMFIELD MD Status of Scribe Document: Viewed
[2018-05-28 13:12] LABS: EGFR Non-African American 73.1 (>60)
[2018-05-28 13:25] LABS: INR 0.99 (0.77-1.02)
[2018-05-28] MEDS ORDERED: hydrOXYzine HCL TAB* 50 MG PO ONE (14:27)
[2018-05-28] MEDS ORDERED: Magnesium Oxide TAB* 400 MG PO ONE (14:27)
[2018-05-28 14:30] LABS: Urine Appearance Clear; Urine Blood Negative (Negative); Urine Color Yellow; Urine Ketones Negative (Negative); Urine Protein Negative (Negative); Urine Specific Gravity 1.013 (1.010-1.030); Urine Urobilinogen Negative (Negative)
--- NOTE | 2018-05-28 19:11 | ED ---
Progress - Progress Note Progress Note: Patient was signed out from Dr. Brumfield upon shift change pending consult with the neurologist and disposition. Re-Evaluation - Re-Evaluation First Eval Re-Evaluation Time: 14:30 Comment: The patient also reports that he was taking Ultram in the past for back pain and Dr. Bravo the primary care physician. That this was causing the seizures. Therefore he was changed to Vicodin however the patient reports that he doesn't like the way back of and feels that he doesn't want to be addicted to Vicodin. Second Eval Re-Evaluation Time: 15:10 Comment: Patient reports that he took Tramadol yesterday, developed seizure today. Course/Dx - Course Course Of Treatment: Patient was signed out from Dr. Brumfield upon shift change pending consult with the neurologist and disposition. Consult with Dr. De Paz ( neurologist) at 1954. She communicated that the patient does not wish to stay in the hospital, and he agrees to follow up as an outpatient in approximately two week. She also communicated that the seizure-like activity may be due to recent medication noncompliance. Pt advised to take Clonazepam religiously. Patient will be discharged home with a prescription for Clonazepam and with follow up from Dr. Abernathy. Patient is agreeable with this plan. - Diagnoses Provider Diagnoses: Seizure - Provider Notifications Discussed Care Of Patient With: Glendy De Paz Time Discussed With Above Provider: 15:54 Instructed by Provider To: Other - Patient's case was discussed with Dr. De Paz , Dr. De Paz agrees to consult on patient. Consult with Dr. De Paz ( neurologist) at 1954. She communicated that the patient does not wish to stay in the hospital, and he agrees to follow up as an outpatient in approximately two week. She also communicated that the seizure-like activity may be due to recent medication noncompliance. Discharge - Sign-Out/Discharge Documenting (check all that apply): Patient Departure - Discharge home, Receiving Sign-Out Receiving patient FROM: Zeferino Brumfield - Upon shift change pending consult with neurologist - Discharge Plan Condition: Stable Disposition: HOME Patient Education Materials: Recurrent Seizures in Adults (ED) Forms: *Work Release Referrals: Todd Bravo MD [Primary Care Provider] - 3 Days Glendy De Paz MD [Medical Doctor] - As Soon As Possible Additional Instructions: RETURN TO THE EMERGENCY DEPARTMENT FOR NEW OR WORSENING SYMPTOMS. Please take Clonazepam religiously every day as instructed. - Attestation Statements Document Initiated by Scribe: Yes Documenting Scribe: Nati Katz Provider For Whom Scribe is Documenting (Include Credential): Dr. Pete Kline MD Scribe Attestation: I, Nati Katz, scribed for Dr. Pete Kline MD on 05/28/18 at 2009. Status of Scribe Document: Ready
[2018-05-28] MEDS ORDERED: clonazePAM TAB(*) 1 MG PO ONE (19:18)
[2018-05-28 20:16] VITALS: BP 150/88
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
--- NOTE | 2018-05-29 09:44 | EEG ---
AMENDED REPORT NOW INCLUDES DATE OF STUDY - ESIGNED BEFORE ADJUSTMENT ELECTROENCEPHALOGRAPHY: DATE OF STUDY: 05/28/18 - EMERGENCY DEPT HISTORY OF PRESENT ILLNESS: Mr. Savage is a 53-year-old gentleman admitted to the hospital after a witnessed seizure at work. The episode lasted for 3 minutes. He was in a postictal state after the event. He has had 4 seizures in his life. He reported taking 1 Ultram yesterday and today. He had been on clonazepam twice a day for a month, and stopped this three days ago. DESCRIPTION OF THE RECORD: This was a 16-channel EEG performed at bedside in the emergency room. In the beginning of the record, there was posterior dominant 9 Hz alpha rhythm, which was symmetric and attenuated with eye opening. There was some muscle artifact noted more anteriorly, left greater than right. As the record continued, there was some rhythmic theta intermittently that was more sharply contoured in the left frontal region. There was no clear epileptiform discharge. At one point poorly formed sharp waves were questioned in the left frontal region. Throughout the record, the patient remained in the awake state. IMPRESSION: This was a slightly abnormal EEG. There was some left frontal, more sharply contoured waves noted, with question of poorly formed sharp waves. There was no clear epileptiform activity. If clinical suspicion for seizure is high, consider a repeat EEG. Central nervous system imaging should to be considered given asymmetry noted. [id number]/[facility] #: [id number] ROLA
== END 2018-05-28 20:16 | disposition home or self-care (01) ==
LOC: ED 12:21
DX: G40.909 Epilepsy, unspecified, not intractable, without status epilepticus (principal); I10 Essential (primary) hypertension; I25.2 Old myocardial infarction; Z95.810 Presence of automatic (implantable) cardiac defibrillator; F17.210 Nicotine dependence, cigarettes, uncomplicated
CPT/HCPCS: 36415; 70450; 71046; 80053; 80307; 80320; 81003; 83605; 83735; 84443; 85025; 85610; 93005; 95816; 96360; 99282; A9270-GY; G0480

== ENCOUNTER 2018-06-18 13:31 | Emergency (ER) | payer OTHER ==
[2018-06-18] MEDS ORDERED: Ketorolac INJ* 60 MG/2 ML VIAL IM ONE (15:57)
--- NOTE | 2018-06-18 16:16 | UC ---
Lower Extremity/Ankle HPI - HPI Summary HPI Summary: 53 yo WM presents with left buttock lumbar and hip pain s/p slip and fall from last step of stairs and c/o severe pain when laying on that side. Pt has h/o severe OA of lumbar spine. - History of Current Complaint Chief Complaint: UCLowerExtremity Stated Complaint: LEG INJURY Time Seen by Provider: 06/18/18 14:27 Hx Obtained From: Patient Onset/Duration: Sudden Onset, Still Present Severity Initially: Moderate Severity Currently: Severe Pain Intensity: 8 Aggravating Factor(s): Ambulation Alleviating Factor(s): Nothing - Allergies/Home Medications Allergies/Adverse Reactions: Allergies Allergy/AdvReac Type Severity Reaction Status Date / Time No Known Allergies Allergy Verified 06/12/18 11:34 PMH/Surg Hx/FS Hx/Imm Hx Previously Healthy: Yes Other History Of: Negative For: HIV, Hepatitis B, Hepatitis C, Anticoagulant Therapy - Surgical History Surgical History: Yes Surgery Procedure, Year, and Place: HERNIA REPAIR - Family History Known Family History: Positive: None, Cardiac Disease - Mother, Other - Lung cancer (father) Negative: Seizure Disorder, Blood Disorder Family History: NON CONTRIBUTORY - Social History Alcohol Use: Weekly Alcohol Amount: "couple of beer after work" Substance Use Type: Marijuana Smoking Status (MU): Light Every Day Tobacco Smoker Type: Cigarettes Amount Used/How Often: quit jun 2015 Household Exposure Type: Cigarettes Review of Systems All Other Systems Reviewed And Are Negative: Yes Constitutional: Positive: Negative Skin: Positive: Negative Eyes: Positive: Negative ENT: Positive: Negative Respiratory: Positive: Negative Cardiovascular: Positive: Negative Gastrointestinal: Positive: Negative Genitourinary: Positive: Negative Neurovascular: Positive: Negative Musculoskeletal: Positive: Decreased ROM, Other: - let hip pain Neurological: Positive: Negative Psychological: Positive: Negative Physical Exam - Summary Physical Exam Summary: Vital Signs Reviewed: Yes Skin: Positive: Warm Head/Face: Positive: Normal Head/Face Inspection Eyes: Positive: Normal ENT: Positive: Normal ENT inspection Neck: Positive: Supple Respiratory/Lung Sounds: Positive: Clear to Auscultation Cardiovascular: Positive: Normal, RRR, S1, S2 Abdomen Description: Positive: Nontender Musculoskeletal: Positive: left buttock and L lateral hip contusion, mildly ecchymotic and severely TTP Neurological: Positive: Normal Psychiatric: Positive: Normal, Affect/Mood Appropriate Triage Information Reviewed: Yes Vital Signs: Initial Vital Signs Temp 36.8 C 06/18/18 14:05 Pulse 106 06/18/18 14:05 Resp 20 06/18/18 14:05 BP 122/82 06/18/18 14:05 Pulse Ox 100 06/18/18 14:05 Vital Signs Reviewed: Yes Neck: Positive: 1 Musculoskeletal Exam: Normal Neurological Exam: Normal Psychological Exam: Normal Skin Exam: Normal Lower Extremity Course/Dx - Course Course Of Treatment: Left hip pain- XR of left hip and lumbar spine- neg for fx - pt has multilevel degenerative spondylosis 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 Pt is so limited by his current severity of pain, that he requests medication stronger than OTC ibuprofen. - Differential Dx/Diagnosis Provider Diagnosis: Left hip pain, Fall (on) (from) other stairs and steps, initial encounter, Contusion, buttock Discharge - Sign-Out/Discharge Documenting (check all that apply): Patient Departure All imaging exams completed and their final reports reviewed: Yes - Discharge Plan Condition: Stable Disposition: HOME Prescriptions: oxyCODONE/Acetamin 5/325 MG* [Percocet 5/325 TAB*] 1 tab PO Q8H PRN 2 Days #6 tab MDD 3 PRN Reason: Pain Patient Education Materials: Hip Contusion (ED) Referrals: Susan Rivero MD [Primary Care Provider] - - Billing Disposition and Condition Condition: STABLE Disposition: Home
[2018-06-18 16:25] VITALS: BP 130/83
== END 2018-06-18 16:30 | disposition home or self-care (01) ==
LOC: UCEAST 13:31
DX: S30.0XXA Contusion of lower back and pelvis, initial encounter (principal); M25.552 Pain in left hip; F17.210 Nicotine dependence, cigarettes, uncomplicated; W10.9XXA Fall (on) (from) unspecified stairs and steps, initial encounter; Y92.9 Unspecified place or not applicable
CPT/HCPCS: 72110; 96372; 99212; G0463; J1885

== ENCOUNTER 2018-09-25 13:31 | Emergency (ER) | payer OTHER ==
--- NOTE | 2018-09-25 13:45 | UC ---
Abdominal Pain Male HPI - HPI Summary HPI Summary: 53 yo male presents with nausea and vomiting. He tells me that yesterday he was at work and began to have nausea. As the day went on he started to vomit and vomited about 6 times yesterday and was sent home from work. He tried to go to work today, but vomited twice this morning. He has not had anything to eat, but is drinking water. He has some generalized abdominal cramping. He also endorses some intermittent muscle aches/spasms in his arms and legs. Says he has this normally, but seems more pronounced since vomiting. Last BM was yesterday and was normal for him. Denies fever, chills, SOB, chest pain, diarrhea/loose stool , headache, or dizziness. - History of Current Complaint Stated Complaint: VOMITING MUSCLE SPASM Time Seen by Provider: 09/25/18 13:44 Hx Obtained From: Patient Onset/Duration: Sudden Onset Severity Initially: Moderate Severity Currently: Moderate Pain Intensity: 5 Pain Scale Used: 0-10 Numeric - Allergies/Home Medications Allergies/Adverse Reactions: Allergies Allergy/AdvReac Type Severity Reaction Status Date / Time No Known Allergies Allergy Verified 09/25/18 13:47 Home Medications: Home Medications Methocarbamol 500 mg PO DAILY 09/25/18 [History Confirmed 09/25/18] Morphine - PF * [Morphine - PF for PAIN CLINIC*] 1 tab PO DAILY 09/25/18 [ History Confirmed 09/25/18] Quetiapine Fumarate [Quetiapine Fumarate ER] 25 mg PO DAILY 09/25/18 [History Confirmed 09/25/18] PMH/Surg Hx/FS Hx/Imm Hx - Additional Past Medical History Additional PMH: Chronic LBP Psychological History: Anxiety, Depression Other History Of: Negative For: HIV, Hepatitis B, Hepatitis C, Anticoagulant Therapy - Surgical History Surgical History: Yes Surgery Procedure, Year, and Place: HERNIA REPAIR - Family History Known Family History: Positive: Cardiac Disease - Mother, Other - Lung cancer ( father) Negative: Seizure Disorder, Blood Disorder - Social History Occupation: Employed Full-time Lives: With Family Alcohol Use: Weekly Alcohol Amount: "couple of beer after work" Substance Use Type: Marijuana Smoking Status (MU): Light Every Day Tobacco Smoker Type: Cigarettes Amount Used/How Often: quit jun 2015 Household Exposure Type: Cigarettes Review of Systems All Other Systems Reviewed And Are Negative: Yes Constitutional: Positive: Negative Skin: Positive: Negative Respiratory: Positive: Negative Cardiovascular: Positive: Negative Gastrointestinal: Positive: Vomiting, Nausea Genitourinary: Positive: Negative Neurovascular: Positive: Negative Musculoskeletal: Positive: Negative Neurological: Positive: Negative Psychological: Positive: Negative Physical Exam - Summary Physical Exam Summary: GENERAL: NAD. WDWN. No pain distress. SKIN: No rashes, sores, lesions, or open wounds. NECK: Supple. Nontender. No lymphadenopathy. CHEST: CTAB. No r/r/w. No accessory muscle use. Breathing comfortably and in no distress. CV: RRR. Without m/r/g. Pulses intact. Cap refill <2seconds ABDOMEN: Soft. NTTP. No distention or guarding. No CVA tenderness. Bowel sounds present NEURO: Alert. PSYCH: Age appropriate behavior. Triage Information Reviewed: Yes Vital Signs: Vital Signs: Temp Pulse Resp BP Pulse Ox 97.6 F 87 18 155/110 100 09/25/18 13:37 09/25/18 13:37 09/25/18 13:37 09/25/18 13:37 09/25/18 13:37 Vital Signs Reviewed: Yes Abd Pain Male Course/Dx - Course Course Of Treatment: I offered him IV fluids in the clinic and labwork to check his electrolyte levels given muscle spasms, but pt declined due to fear of needles. Therefore, he was given zofran ODT for his vomiting/nausea. Abdomen XR: IMPRESSION:#. Ileus versus partial small bowel obstruction. He had no episodes of vomiting in the clinic and was drinking water. I discussed results with pt and recommended he go to the ED for contrast CT to further evaluate his ileus vs partial SBO. He declined and said that he did not want to go. I discussed the risks of this with him and strongly encouraged him that if his symptoms are not improved by tomorrow or if they worsen to go directly to the ED - he voiced understanding and agreed he would go if not improved. - Differential Dx/Clinical Impression Provider Diagnosis: Vomiting Discharge - Sign-Out/Discharge Documenting (check all that apply): Patient Departure All imaging exams completed and their final reports reviewed: Yes - Discharge Plan Condition: Stable Disposition: HOME-RECOMMEND TO ED Patient Education Materials: Bowel Obstruction (ED), Ileus (ED) Forms: *Work Release Referrals: Susan Rivero MD [Primary Care Provider] - Additional Instructions: Please go to the ER for further evaluation of your vomiting and possible small bowel obstruction. - Billing Disposition and Condition Condition: STABLE Disposition: Home-Recommend to ED
[2018-09-25 13:49] VITALS: BP 155/110
[2018-09-25] MEDS: Ondansetron ODT TAB* 4 MG SL ONE (14:18)
== END 2018-09-25 14:55 | disposition home health service (06) ==
LOC: UCEAST 13:31
DX: F11.10 Opioid abuse, uncomplicated (principal); F17.210 Nicotine dependence, cigarettes, uncomplicated
CPT/HCPCS: 74019; 99202; A9270-GY; G0463

== ENCOUNTER 2020-02-25 16:02 | Inpatient (IN) ==
[2020-02-25 17:46] LABS: ABS Eosinophils 0.1 10^3/ul (0-0.6); ABS Lymphocytes 1.3 10^3/ul (1.0-4.8); ABS Monocytes 0.3 10^3/ul (0-0.8); Eosinophil % 3.1 %; Hematocrit 40 % (42-52); Hemoglobin 13.8 g/dL (14.0-18.0); Lymphocyte % 35.3 %; Mean Corpuscular HGB Conc 35 g/dL (31-36); Mean Corpuscular Hemoglobin 32 pg (27-31); Mean Corpuscular Volume 91 fL (80-94); Mean Platelet Volume 7.2 fL (7.4-10.4); Platelet Count 190 10^3/uL (150-450); Red Blood Count 4.37 10^6 /uL (4.18-5.48); Red Cell Distribution Width 13 % (10-15); White Blood Count 3.8 10^3/uL (3.5-10.8)
[2020-02-25 18:01] LABS: ALT 30 U/L (7-52); AST 25 U/L (13-39); Albumin 4.3 g/dL (3.2-5.2); Albumin/Globulin Ratio 1.6 (1-3); Alkaline Phosphatase 80 U/L (34-104); Anion Gap 4 mmol/L (2-11); BUN/Creatinine Ratio 19.3 (8-20); Blood Urea Nitrogen 21 mg/dL (6-24); CO2 Carbon Dioxide 27 mmol/L (22-32); Calcium 8.9 mg/dL (8.6-10.3); Chloride 103 mmol/L (101-111); EGFR Non-African American 70.2 (>60); Globulin 2.7 g/dL (2-4); Glucose 88 mg/dL (70-100); Potassium 3.9 mmol/L (3.5-5.0); Sodium 134 mmol/L (135-145)
[2020-02-25 18:02] LABS: Urine Appearance Clear; Urine Bilirubin Negative (Negative); Urine Blood Negative (Negative); Urine Color Yellow; Urine Glucose Negative (Negative); Urine Ketones Negative (Negative); Urine Nitrite Negative (Negative); Urine Protein Negative (Negative); Urine Specific Gravity 1.017 (1.010-1.030); Urine Urobilinogen Negative (Negative)
[2020-02-25 18:06] LABS: Urine Benzodiazepine Screen Presumptive Positive (None Detect); Urine Cannabinoids Screen Presumptive Positive (None Detect); Urine Opiates Screen Presumptive Positive (None Detect)
[2020-02-25 18:28] LABS: Acetaminophen < 15 mcg/mL; Alcohol, S < 10 mg/dL (<10); Salicylate < 2.50 mg/dL (<30)
[2020-02-25 18:39] LABS: TSH Ultra Thyroid Stim Horm 0.75 mcIU/mL (0.34-5.60)
[2020-02-25] MEDS ORDERED: Nicotine GUM 2MG FRUIT FLAVOR PO PRN (23:00)
[2020-02-25] MEDS ORDERED: Al Hydrox/Mg Hydrox/Simet LIQ 30 ML UDC PO PRN (23:13)
[2020-02-26] MEDS: Morphine ORAL.SOLN 10 mg 2 mg/ml UDC 5 ml (10 mg) PO SCH ×2 (03:51→20:46)
[2020-02-26] MEDS: Morphine ER 15 mg TAB ** extended release PO SCH (09:59)
[2020-02-26] MEDS: Vitamin THERAPEUTIC TAB PO SCH (09:59)
[2020-02-27 07:55] LABS: HDL Cholesterol 47.7 mg/dL
[2020-02-27] MEDS: Morphine ER 15 mg TAB ** extended release PO SCH (08:22)
[2020-02-27] MEDS: Vitamin THERAPEUTIC TAB PO SCH (08:23)
[2020-02-27] MEDS: Morphine ORAL.SOLN 10 mg 2 mg/ml UDC 5 ml (10 mg) PO SCH (20:39)
[2020-02-28] MEDS: Morphine ER 15 mg TAB ** extended release PO SCH (08:18)
[2020-02-28] MEDS: Vitamin THERAPEUTIC TAB PO SCH (08:19)
[2020-02-28] MEDS: Morphine ORAL.SOLN 10 mg 2 mg/ml UDC 5 ml (10 mg) PO SCH (20:11)
[2020-02-28] MEDS ORDERED: Morphine ORAL.SOLN 10 mg 2 mg/ml UDC 5 ml (10 mg) ONE (20:11)
[2020-02-29] MEDS: Morphine ER 15 mg TAB ** extended release PO SCH (07:51)
[2020-02-29] MEDS: Vitamin THERAPEUTIC TAB PO SCH (07:51)
[2020-02-29] MEDS: Morphine ORAL.SOLN 10 mg 2 mg/ml UDC 5 ml (10 mg) PO SCH (20:31)
[2020-03-01] MEDS: Morphine ER 15 mg TAB ** extended release PO SCH (08:05)
[2020-03-01] MEDS: Vitamin THERAPEUTIC TAB PO SCH (08:05)
[2020-03-01 09:15] VITALS: BP 138/94
== END 2020-03-01 14:20 | disposition home or self-care (01) | DRG 751 ==
LOC: ED 16:02 → BSU 23:25
PROVIDERS: ADMIT Psychiatry & Neurology Psychiatry; ATTEND Psychiatry & Neurology Psychiatry

== ENCOUNTER 2022-07-25 11:02 | Observation (INO) ==
[~2022-07-25 11:02] MED LIST: Acetaminophen IV 1 GM/100ML 1,000 MG/100 ML BAG IV ONE; Buffered Lidocaine 1% SYRIN 1 ml INTRADERM ONE; Dexamethasone IV 4 MG/ML VIAL 1 ml VIAL ONE; Lactated Ringers 1000 ml BAG 1,000 ML IV SCH; Lidocaine 2% PF 5 ML VIAL ONE; Midazolam 2 mg/2 ml VIAL 1 mg/ml 2 ml VIAL (2 mg) ONE; Ondansetron 4 mg VIAL 2 MG/ML 2 ml VIAL ONE; Propofol 10 MG/ML 20 ML BTL ONE; Rocuronium 50 mg VIAL 10 mg/ml 5 ml VIAL (50 mg) ONE; fentaNYL 250 mcg/5 ml 50 MCG/ML 5 ml VIAL (250 MCG) ONE
[2022-07-25] MEDS ORDERED: ceFAZolin 2 GM PREMIX 2 GM/50 ML BAG ONE (11:32)
[2022-07-25] MEDS ORDERED: Buffered Lidocaine 1% SYRIN 1 ml ONE (11:32)
[2022-07-25] MEDS ORDERED: Chlorhexidine MOUTHWASH 0.12% 15 ML UDC ONE (11:32)
[2022-07-25] MEDS ORDERED: Gelfoam Sponge SIZE 100 SPONGE ONE (12:39)
[2022-07-25] MEDS ORDERED: Thrombin 5,000 UNITS 1 APPLIC KIT - topical use - TOPICAL ONE (12:39)
[2022-07-25] MEDS ORDERED: ceFAZolin VIAL VIAL ONE (12:39)
[2022-07-25] MEDS ORDERED: Lidocaine 2% w EPI 1:100,000 20 ML MDV VIAL ONE (12:39)
[2022-07-25] MEDS ORDERED: Naloxone 0.4 mg VIAL 0.4 mg/ml 1 ml VIAL IV PRN (13:51)
[2022-07-25] MEDS ORDERED: Prochlorperazine 5 mg/ml 2 ml VIAL (10 mg) IV PRN (13:51)
[2022-07-25] MEDS ORDERED: HYDROmorphone 1 MG/1 ML SYRINGE IV PRN (13:51)
[2022-07-25] MEDS ORDERED: Ondansetron 4 mg VIAL 2 MG/ML 2 ml VIAL IV PRN (14:14)
[2022-07-25] MEDS ORDERED: Senna TAB 8.6 mg TAB PO PRN (14:16)
[2022-07-25] MEDS ORDERED: Morphine 2 MG/ML SYRINGE IV PRN (14:16)
[2022-07-25] MEDS ORDERED: Triamcinolone 0.025% OINT 15 GM TUBE TOPICAL PRN (14:17)
[2022-07-25] MEDS ORDERED: Albuterol HFA INHALER 8 gm MDI INH PRN (14:17)
[2022-07-25] MEDS ORDERED: fentaNYL 100 mcg/2 ml 50 MCG/ML VIAL ONE (14:37)
[2022-07-25] MEDS: fentaNYL 100 mcg/2 ml 50 MCG/ML VIAL IV PRN ×2 (14:38→14:45)
[2022-07-25] MEDS ORDERED: Lactated Ringers 1000 ml BAG 1,000 ML IV SCH (15:00)
[2022-07-26 07:53] VITALS: BP 102/65
[2022-07-26] MEDS ORDERED: Morphine ER 15 mg TAB ** extended release PO SCH (09:00)
[2022-07-26] MEDS ORDERED: CMCS:Desvenlafaxine 50 mg TAB ER (NF) PO SCH (09:00)
== END 2022-07-26 10:15 | disposition home or self-care (01) ==
LOC: OR 11:02 → SSU 11:02
PROVIDERS: ADMIT Neurological Surgery; ATTEND Neurological Surgery

== ENCOUNTER 2023-04-30 13:41 | Inpatient (IN) ==
[2023-04-30] MEDS ORDERED: LORazepam 2 mg VIAL 1 ml IV PUSH ONE (14:57)
[2023-04-30] MEDS ORDERED: Lactated Ringers 1000 ml BAG 1,000 ML IV ONE (14:57)
[2023-04-30] MEDS ORDERED: Lorazepam PYXIS KEY PRN (14:57)
[2023-04-30] MEDS ORDERED: Morphine 4 MG/ML VIAL (1 ml) IV ONE ×2 (15:47→20:07)
[2023-04-30 16:04] LABS: ALT 68 U/L (7-52); AST 47 U/L (13-39); Albumin/Globulin Ratio 1.1 (1-3); Alkaline Phosphatase 299 U/L (35-149); Anion Gap 5 mmol/L (2-16); Blood Urea Nitrogen 25 mg/dL (6-24); C Reactive Protein 135.29 mg/L (<8.01); CO2 Carbon Dioxide 30 mmol/L (22-32); Calcium 9.1 mg/dL (8.6-10.3); Chloride 93 mmol/L (101-111); Creatinine, Serum 1.61 mg/dL (0.67-1.17); Globulin 3.5 g/dL (2-4); Glucose 108 mg/dL (70-100); Potassium 4.8 mmol/L (3.5-5.0); Sodium 128 mmol/L (135-145); Total Bilirubin 0.3 mg/dL (0.2-1.0); Total Protein 7.5 g/dL (6.4-8.9); eGFR CKD-EPI 49.3 (>60)
[2023-04-30 16:21] LABS: ABS Basophils 0.1 10^3/uL (0.0-0.1); ABS Eosinophils 0.2 10^3/uL (0.0-0.5); ABS Lymphocytes 1.4 10^3/uL (1.0-4.8); ABS Monocytes 0.7 10^3/uL (0.0-1.1); ABS Neutrophils 9.3 10^3/uL (1.5-7.6); Eosinophil % 1.4 %; Hematocrit 32.2 % (38-53); Hemoglobin 10.9 g/dL (13.2-16.3); Lymphocyte % 11.9 %; Mean Corpuscular Hemoglobin 28.6 pg (27-33); Mean Corpuscular Hgb Conc 33.9 g/dL (31-36); Mean Corpuscular Volume 84.4 fL (80-97); Mean Platelet Volume 7.6 fL (7.5-11.2); Platelet Count 319 10^3/uL (150-450); Red Blood Count 3.82 10^6/uL (4.06-5.63); Red Cell Distribution Width 13.9 % (12-17); White Blood Count 11.6 10^3/uL (3.6-10.2)
[2023-04-30] MEDS ORDERED: Iodixanol (CONTRAST) 320 MG/ML 100 ML SDV IV ONE (16:50)
[2023-04-30] MEDS ORDERED: NS 0.9% 1000 ml BAG 1,000 ML IV ONE (21:17)
[2023-04-30] MEDS ORDERED: Albuterol HFA INHALER 8 gm MDI INH PRN (21:32)
[2023-04-30] MEDS ORDERED: Lactated Ringers 1000 ml BAG 1,000 ML IV SCH (22:00)
[2023-04-30] MEDS ORDERED: Piperacillin/Tazobac 3.375 BAG 3.375 GM/100 ML BAG IV ONE ×2 (22:12→22:13)
[2023-04-30] MEDS ORDERED: Vancomycin 1,250 MG in NS 0.9% 250 ml 250 ML IVPB ONE ×2 (22:15→23:00)
[2023-04-30] MEDS ORDERED: Heparin 5000 UNITS/ML 1 mL VIAL SUBCUT ONE (22:30)
[2023-04-30] MEDS ORDERED: Vancomycin per Pharmacy 1 EA NOTE FOLLOW UP PRN (22:32)
[2023-04-30] MEDS: Morphine ER 15 mg TAB ** extended release PO SCH (22:35)
[2023-04-30] MEDS ORDERED: Zosyn per Pharmacy NOTE FOLLOW UP SCH (23:00)
[2023-04-30 23:58] LABS: Osmolality Serum 282 mOsm/kg (275-295)
[2023-05-01 00:35] LABS: % Iron Saturation 8 % (15-55); .Transferrin 169 mg/dL (203-362); Iron < 20 ug/dL (50-212); Total Iron Binding Capacity 237 mcg/dL (250-450); Unsaturated Iron Binding 217 ug/dL
[2023-05-01 00:41] LABS: Erythrocyte Sed Rate 86 mm/Hr (0-19)
[2023-05-01 00:52] LABS: Ferritin 298.9 ng/mL (24-336)
[2023-05-01] MEDS: Lactated Ringers 1000 ml BAG 1,000 ML IV SCH ×2 (01:47→20:23)
[2023-05-01] MEDS ORDERED: Tetan/Diph/Pertus SYR(Tdap) 0.5 ML SYR(BOOSTRIX) use SYR contains LATEX IM ONE ×2 (02:04→09:00)
[2023-05-01] MEDS: ZOSYN 3.375 GM Q8H per EXTENDED INFUSION IV SCH ×3 (03:21→12:35)
[2023-05-01 06:37] LABS: ABS Basophils 0.1 10^3/uL (0.0-0.1); ABS Eosinophils 0.2 10^3/uL (0.0-0.5); ABS Lymphocytes 0.9 10^3/uL (1.0-4.8); ABS Monocytes 0.6 10^3/uL (0.0-1.1); ABS Neutrophils 6.5 10^3/uL (1.5-7.6); Eosinophil % 1.9 %; Hematocrit 31.5 % (38-53); Hemoglobin 10.6 g/dL (13.2-16.3); Lymphocyte % 10.7 %; Mean Corpuscular Hemoglobin 28.5 pg (27-33); Mean Corpuscular Hgb Conc 33.8 g/dL (31-36); Mean Corpuscular Volume 84.2 fL (80-97); Mean Platelet Volume 7.1 fL (7.5-11.2); Platelet Count 297 10^3/uL (150-450); Red Blood Count 3.73 10^6/uL (4.06-5.63); Red Cell Distribution Width 14.3 % (12-17); White Blood Count 8.3 10^3/uL (3.6-10.2)
[2023-05-01 07:17] LABS: Albumin 3.5 g/dL (3.2-5.2); Albumin/Globulin Ratio 1.1 (1-3); Calcium 8.8 mg/dL (8.6-10.3); Creatinine, Serum 1.48 mg/dL (0.67-1.17); Globulin 3.3 g/dL (2-4); Magnesium 2.1 mg/dL (1.9-2.7); Potassium 5.1 mmol/L (3.5-5.0); Total Bilirubin 0.6 mg/dL (0.2-1.0); Total Protein 6.8 g/dL (6.4-8.9); eGFR CKD-EPI 54.5 (>60)
[2023-05-01] MEDS: CMCS: Desvenlafaxine 50 mg TAB ER (NF) PO SCH (08:17)
[2023-05-01] MEDS: DULoxetine DR 20 mg CAP PO SCH (08:18)
[2023-05-01] MEDS: Morphine ER 15 mg TAB ** extended release PO SCH ×2 (08:19→20:21)
[2023-05-01] MEDS: Multivitamins/Minerals TAB PO SCH (09:51)
[2023-05-01] MEDS: ZOSYN 3.375 GM IV SCH ×2 (12:32→18:12)
[2023-05-01] MEDS: Vancomycin 750 MG in NS 0.9% 250 ML IVPB SCH (13:49)
[2023-05-02] MEDS: Vancomycin 750 MG in NS 0.9% 250 ML IVPB SCH ×2 (00:10→22:23)
[2023-05-02 01:34] LABS: Urine Potassium Concentration 38.7 mmol/L
[2023-05-02 01:39] LABS: Urine Appearance Clear; Urine Bilirubin Negative (Negative); Urine Blood Negative (Negative); Urine Color Yellow; Urine Glucose Negative (Negative); Urine Ketones Negative (Negative); Urine Nitrite Negative (Negative); Urine Protein Negative (Negative); Urine Specific Gravity 1.013 (1.002-1.030); Urine Urobilinogen Negative (Negative)
[2023-05-02] MEDS: ZOSYN 3.375 GM IV SCH ×4 (02:11→19:54)
[2023-05-02 05:36] LABS: ABS Eosinophils 0.3 10^3/uL (0.0-0.5); ABS Lymphocytes 0.9 10^3/uL (1.0-4.8); ABS Monocytes 0.6 10^3/uL (0.0-1.1); ABS Neutrophils 5.4 10^3/uL (1.5-7.6); ABS Nucleated RBC 0.01 10^3/ul; Eosinophil % 4.4 %; Hematocrit 31.4 % (38-53); Hemoglobin 10.6 g/dL (13.2-16.3); Lymphocyte % 11.9 %; Mean Corpuscular Hemoglobin 28.5 pg (27-33); Mean Corpuscular Hgb Conc 33.9 g/dL (31-36); Mean Corpuscular Volume 84.2 fL (80-97); Nucleated Red Blood Cells % 0.1 %/100WBC (0.0-0.8); Platelet Count 311 10^3/uL (150-450); Red Blood Count 3.73 10^6/uL (4.06-5.63); Red Cell Distribution Width 13.8 % (12-17); White Blood Count 7.2 10^3/uL (3.6-10.2)
[2023-05-02 06:00] LABS: C Reactive Protein 111.99 mg/L (<8.01); Calcium 8.8 mg/dL (8.6-10.3); Creatinine, Serum 1.09 mg/dL (0.67-1.17); Potassium 4.7 mmol/L (3.5-5.0); eGFR CKD-EPI 78.7 (>60)
[2023-05-02] MEDS: Lactated Ringers 1000 ml BAG 1,000 ML IV SCH (06:20)
[2023-05-02] MEDS: DULoxetine DR 20 mg CAP PO SCH (09:08)
[2023-05-02] MEDS: Morphine ER 15 mg TAB ** extended release PO SCH ×2 (09:08→20:27)
[2023-05-02] MEDS: CMCS: Desvenlafaxine 50 mg TAB ER (NF) PO SCH (09:08)
[2023-05-02] MEDS: Multivitamins/Minerals TAB PO SCH (09:08)
[2023-05-02] MEDS ORDERED: Vancomycin Trough Check NOTE FOLLOW UP ONE (11:30)
[2023-05-02 13:12] LABS: Urine Osmo 450 mOsm/kg (150-1150)
[2023-05-02] MEDS ORDERED: Lactated Ringers 1000 ml BAG 1,000 ML IV SCH (13:36)
[2023-05-02 14:32] LABS: Creatinine, Serum 1.12 mg/dL (0.67-1.17); eGFR CKD-EPI 76.1 (>60)
[2023-05-02] MEDS ORDERED: Bupivacaine 0.5% SDV PF 30ML VIAL ONE (15:19)
[2023-05-02 15:57] LABS: Vancomycin Trough 11.4 mcg/mL
[2023-05-02] MEDS ORDERED: Lidocaine 1% VIAL 10 MG/ML 30 ML VIAL ONE (15:57)
[2023-05-02] MEDS ORDERED: Lidocaine 2% PF 5 ML VIAL ONE (16:10)
[2023-05-02] MEDS ORDERED: Sevoflurane BOTTLE ONE (16:10)
[2023-05-02] MEDS ORDERED: Ondansetron 4 mg VIAL 2 MG/ML 2 ml VIAL ONE (16:11)
[2023-05-02] MEDS ORDERED: Propofol 10 MG/ML 20 ML BTL ONE (16:11)
[2023-05-02] MEDS ORDERED: Dexamethasone IV 4 MG/ML VIAL 1 ml VIAL ONE (16:11)
[2023-05-02] MEDS ORDERED: fentaNYL 100 mcg/2 ml 50 MCG/ML VIAL ONE ×2 (16:27→16:55)
[2023-05-02] MEDS ORDERED: Midazolam 2 mg/2 ml VIAL 1 mg/ml 2 ml VIAL (2 mg) ONE (16:27)
[2023-05-02] MEDS ORDERED: Acetaminophen IV 1 GM/100ML 1,000 MG/100 ML BAG IV ONE (17:07)
[2023-05-02] MEDS ORDERED: Naloxone 0.4 mg VIAL 0.4 mg/ml 1 ml VIAL IV PRN (18:14)
[2023-05-02] MEDS ORDERED: Ondansetron 4 mg VIAL 2 MG/ML 2 ml VIAL IV PRN (18:14)
[2023-05-02] MEDS: Vancomycin 1000 MG in NS 0.9% 250 ML IVPB SCH (19:53)
[2023-05-03] MEDS: ZOSYN 3.375 GM IV SCH ×4 (00:41→17:38)
[2023-05-03 06:19] LABS: ABS Basophils 0.1 10^3/uL (0.0-0.1); ABS Lymphocytes 0.8 10^3/uL (1.0-4.8); ABS Monocytes 0.4 10^3/uL (0.0-1.1); ABS Neutrophils 6.5 10^3/uL (1.5-7.6); Eosinophil % 0.2 %; Hemoglobin 10.5 g/dL (13.2-16.3); Lymphocyte % 9.8 %; Mean Corpuscular Hemoglobin 28.3 pg (27-33); Mean Corpuscular Hgb Conc 33.8 g/dL (31-36); Mean Corpuscular Volume 83.6 fL (80-97); Mean Platelet Volume 7.5 fL (7.5-11.2); Platelet Count 316 10^3/uL (150-450); Red Blood Count 3.71 10^6/uL (4.06-5.63); Red Cell Distribution Width 13.6 % (12-17); White Blood Count 7.7 10^3/uL (3.6-10.2)
[2023-05-03] MEDS: Vancomycin 1000 MG in NS 0.9% 250 ML IVPB SCH (06:24)
[2023-05-03 06:44] LABS: C Reactive Protein 67.1 mg/L (<8.01); Calcium 8.6 mg/dL (8.6-10.3); Creatinine, Serum 1.23 mg/dL (0.67-1.17); Potassium 4.8 mmol/L (3.5-5.0); eGFR CKD-EPI 68.1 (>60)
[2023-05-03] MEDS: DULoxetine DR 20 mg CAP PO SCH (08:04)
[2023-05-03] MEDS: Morphine ER 15 mg TAB ** extended release PO SCH ×2 (08:04→21:48)
[2023-05-03] MEDS: CMCS: Desvenlafaxine 50 mg TAB ER (NF) PO SCH (08:06)
[2023-05-03] MEDS: Multivitamins/Minerals TAB PO SCH (08:09)
[2023-05-04] MEDS: ZOSYN 3.375 GM IV SCH ×2 (00:09→06:04)
[2023-05-04] MEDS ORDERED: Vancomycin Trough Check NOTE FOLLOW UP ONE (06:00)
[2023-05-04 06:06] LABS: ABS Basophils 0.1 10^3/uL (0.0-0.1); ABS Eosinophils 0.3 10^3/uL (0.0-0.5); ABS Lymphocytes 1.9 10^3/uL (1.0-4.8); ABS Monocytes 0.4 10^3/uL (0.0-1.1); ABS Neutrophils 4.6 10^3/uL (1.5-7.6); Eosinophil % 4.4 %; Hematocrit 32.3 % (38-53); Hemoglobin 10.6 g/dL (13.2-16.3); Lymphocyte % 26.2 %; Mean Corpuscular Hemoglobin 28.4 pg (27-33); Mean Corpuscular Hgb Conc 32.7 g/dL (31-36); Mean Corpuscular Volume 86.8 fL (80-97); Mean Platelet Volume 7.7 fL (7.5-11.2); Platelet Count 312 10^3/uL (150-450); Red Blood Count 3.72 10^6/uL (4.06-5.63); Red Cell Distribution Width 14.1 % (12-17); White Blood Count 7.4 10^3/uL (3.6-10.2)
[2023-05-04 06:25] LABS: C Reactive Protein 33.7 mg/L (<8.01); Calcium 8.5 mg/dL (8.6-10.3); Creatinine, Serum 1.16 mg/dL (0.67-1.17); Potassium 4.7 mmol/L (3.5-5.0)
[2023-05-04] MEDS: CMCS: Desvenlafaxine 50 mg TAB ER (NF) PO SCH (09:01)
[2023-05-04] MEDS: DULoxetine DR 20 mg CAP PO SCH (09:02)
[2023-05-04] MEDS: Morphine ER 15 mg TAB ** extended release PO SCH (09:04)
[2023-05-04] MEDS: Multivitamins/Minerals TAB PO SCH (09:05)
[2023-05-04 12:39] VITALS: BP 155/83
[2023-05-04] MEDS ORDERED: Amoxicillin/Clavul 875/125 TAB (Augmentin 875 tab) PO SCH (21:00)
== END 2023-05-04 14:30 | disposition home or self-care (01) | DRG 603 ==
LOC: ED 13:41 → EDHOLD 13:41 → SUATTDRO 19:52 → OBSVTOIN 19:52 → MEDTELE 21:12
PROVIDERS: ADMIT Student in an Organized Health Care Education/Training Program; ATTEND Internal Medicine

== ENCOUNTER 2023-08-23 09:03 | Inpatient (IN) ==
[2023-08-23] MEDS: Morphine 4 MG/ML VIAL (1 ml) IV ONE ×2 (10:06→13:13)
[2023-08-23] MEDS: Lactated Ringers 1000 ml BAG 1,000 ML IV ONE ×2 (10:19→11:52)
[2023-08-23 10:20] LABS: ABS Basophils 0.1 10^3/uL (0.0-0.1); ABS Lymphocytes 1.4 10^3/uL (1.0-4.8); ABS Monocytes 0.7 10^3/uL (0.0-1.1); ABS Neutrophils 5.6 10^3/uL (1.5-7.6); ABS Nucleated RBC 0.02 10^3/ul; Eosinophil % 0.6 %; Lymphocyte % 17.6 %; Mean Corpuscular Volume 82.9 fL (80-97); Mean Platelet Volume 6.8 fL (7.5-11.2); Nucleated Red Blood Cells % 0.2 %/100WBC (0.0-0.8); Platelet Count 351 10^3/uL (150-450); Red Blood Count 4.46 10^6/uL (4.06-5.63); Red Cell Distribution Width 14.6 % (12-17); White Blood Count 7.7 10^3/uL (3.6-10.2)
[2023-08-23 10:27] LABS: Activated Partial Thrombo Time 30.2 seconds (26.0-38.0); INR 1.13 (0.83-1.13)
[2023-08-23 10:37] LABS: High Sens Troponin Baseline 8 pg/mL (<20)
[2023-08-23 10:42] LABS: ALT 42 U/L (7-52); Albumin 4.2 g/dL (3.2-5.2); Albumin/Globulin Ratio 1.4 (1-3); Alkaline Phosphatase 99 U/L (35-149); Anion Gap 12 mmol/L (2-16); Blood Urea Nitrogen 52 mg/dL (6-24); C Reactive Protein 53.75 mg/L (<8.01); CO2 Carbon Dioxide 22 mmol/L (22-32); Calcium 9.5 mg/dL (8.6-10.3); Chloride 98 mmol/L (101-111); Creatine Kinase 359 U/L (10-223); Creatinine, Serum 0.95 mg/dL (0.67-1.17); Glucose 126 mg/dL (70-100); Sodium 132 mmol/L (135-145); Total Bilirubin 0.6 mg/dL (0.2-1.0); Total Protein 7.2 g/dL (6.4-8.9); eGFR CKD-EPI 92.8 (>60)
[2023-08-23 11:39] LABS: Potassium Redraw 4.4 mmol/L (3.5-5.0)
[2023-08-23 11:42] LABS: Urine Appearance Clear; Urine Bilirubin Negative (Negative); Urine Blood Trace (Negative); Urine Color Light-Yellow; Urine Glucose Negative (Negative); Urine Ketones 1+ (Negative); Urine Nitrite Negative (Negative); Urine Protein Trace (Negative); Urine Specific Gravity 1.017 (1.002-1.030); Urine Urobilinogen Negative (Negative)
[2023-08-23] MEDS: HYDROmorphone 1 MG/1 ML SYRINGE IV ONE (14:52)
[2023-08-23] MEDS: cefTRIAXone 1 gm/50 mL D5W 1 GM/50 ML BAG IV ONE (14:52)
[2023-08-23] MEDS: Azithromycin 500 mg/250 ml NS 500 MG/250 ML BAG IVPB ONE (15:15)
[2023-08-23] MEDS ORDERED: Mupirocin 2% OINT TUBE TOPICAL PRN (17:22)
[2023-08-23] MEDS ORDERED: HYDROcodone/ACETAMIN 5/325 mg TAB PO PRN (17:22)
[2023-08-23] MEDS ORDERED: Dextrose 50% Syringe 50 ml 25 GM/50 ML SYRINGE IV PUSH PRN (17:30)
[2023-08-23] MEDS: Enoxaparin 40 MG/0.4 ML SYR SUBCUT SCH (17:35)
[2023-08-23] MEDS ORDERED: Naloxone 0.4 mg VIAL 0.4 mg/ml 1 ml VIAL IV PUSH PRN (17:39)
[2023-08-23] MEDS: Morphine ER 15 mg TAB ** extended release PO SCH (17:56)
[2023-08-23] MEDS: Pantoprazole VIAL 40 MG VIAL IV SCH (17:57)
[2023-08-23 18:24] LABS: Lipase 41 U/L (11.0-82.0)
[2023-08-23] MEDS: Thiamine 100 MG/ML 2 ml VIAL 500 MG in NS 0.9% 250 ml 250 ML IV ONE (19:40)
[2023-08-23 19:51] LABS: Vitamin B12 852 pg/mL (180-914)
[2023-08-23] MEDS: Senna TAB 8.6 mg TAB PO SCH (20:15)
[2023-08-23] MEDS: Sucralfate 1 gm SUSP 1 GM/10 ML UDC PO SCH (20:16)
[2023-08-23] MEDS: Famotidine IV 10 MG/ML 2 ml VIAL (20 mg) IV SLOW PU SCH (20:28)
[2023-08-23] MEDS: HYDROmorphone 1 MG/1 ML SYRINGE IV SLOW PU PRN (20:29)
[2023-08-23 20:51] LABS: Folate 11.23 ng/mL (5.90-24.80)
[2023-08-23] MEDS ORDERED: Morphine ER 15 mg TAB ** extended release PO SCH (21:00)
[2023-08-24 00:04] LABS: Hemoglobin 8.8 g/dL (13.2-16.3)
[2023-08-24] MEDS: Iodixanol (CONTRAST) 320 MG/ML 100 ML SDV IV ONE ×2 (00:25→06:17)
[2023-08-24] MEDS: Pantoprazole VIAL 40 MG VIAL IV ONE (00:33)
[2023-08-24] MEDS: Lactated Ringers 1000 ml BAG 1,000 ML IV ONE (03:32)
[2023-08-24 07:29] LABS: ABS Lymphocytes 1.5 10^3/uL (1.0-4.8); ABS Monocytes 0.7 10^3/uL (0.0-1.1); ABS Neutrophils 5.7 10^3/uL (1.5-7.6); Eosinophil % 0.5 %; Hematocrit 25.7 % (38-53); Hemoglobin 9.1 g/dL (13.2-16.3); Lymphocyte % 18.8 %; Mean Corpuscular Hemoglobin 29.3 pg (27-33); Mean Corpuscular Hgb Conc 35.6 g/dL (31-36); Mean Corpuscular Volume 82.5 fL (80-97); Mean Platelet Volume 6.6 fL (7.5-11.2); Platelet Count 260 10^3/uL (150-450); Red Blood Count 3.11 10^6/uL (4.06-5.63); Red Cell Distribution Width 14.6 % (12-17)
[2023-08-24] MEDS ORDERED: Polyethylene Glycol 3350 17 GM PACKET PO SCH (08:00)
[2023-08-24 08:20] LABS: Albumin 3.3 g/dL (3.2-5.2); Albumin/Globulin Ratio 1.6 (1-3); Calcium 8.5 mg/dL (8.6-10.3); Creatinine, Serum 1.05 mg/dL (0.67-1.17); Globulin 2.1 g/dL (2-4); Magnesium 1.7 mg/dL (1.9-2.7); Phosphorus 1.8 mg/dL (2.5-5.0); Potassium 4.8 mmol/L (3.5-5.0); Total Bilirubin 0.6 mg/dL (0.2-1.0); Total Protein 5.4 g/dL (6.4-8.9); eGFR CKD-EPI 82.3 (>60)
[2023-08-24] MEDS: Pantoprazole 80 mg in NS BAG 80 MG/250 ML BAG IV SCH (08:22)
[2023-08-24] MEDS: CMCS: Desvenlafaxine 50 mg TAB ER (NF) PO SCH (08:30)
[2023-08-24] MEDS: DULoxetine DR 20 mg CAP PO SCH (08:33)
[2023-08-24] MEDS ORDERED: Pantoprazole VIAL 40 MG VIAL IV SCH (09:00)
[2023-08-24] MEDS: HYDROmorphone 0.5 MG/0.5 ML SYRINGE IV SLOW PU PRN (10:57)
[2023-08-24] MEDS: Magnesium Sulfate 2 gm BAG 2 GM/50 ML BAG IVPB ONE (10:57)
[2023-08-24 10:59] LABS: ABS Basophils 0.1 10^3/uL (0.0-0.1); ABS Lymphocytes 1.2 10^3/uL (1.0-4.8); ABS Monocytes 0.5 10^3/uL (0.0-1.1); ABS Nucleated RBC 0.01 10^3/ul; Eosinophil % 0.5 %; Hematocrit 23.7 % (38-53); Hemoglobin 8.6 g/dL (13.2-16.3); Lymphocyte % 17.5 %; Mean Corpuscular Hemoglobin 29.8 pg (27-33); Mean Corpuscular Hgb Conc 36.2 g/dL (31-36); Mean Corpuscular Volume 82.2 fL (80-97); Mean Platelet Volume 6.6 fL (7.5-11.2); Nucleated Red Blood Cells % 0.1 %/100WBC (0.0-0.8); Platelet Count 256 10^3/uL (150-450); Red Blood Count 2.88 10^6/uL (4.06-5.63); Red Cell Distribution Width 14.7 % (12-17); White Blood Count 6.8 10^3/uL (3.6-10.2)
[2023-08-24] MEDS: Erythromycin Lactobionate IV 250 MG in NS 0.9% 100 ml BAG 100 ML IVPB ONE (12:10)
[2023-08-24] MEDS ORDERED: Naloxone 0.4 mg VIAL 0.4 mg/ml 1 ml VIAL IV PRN (12:26)
[2023-08-24] MEDS ORDERED: Lidocaine 2% PF 5 ML VIAL ONE (12:33)
[2023-08-24] MEDS ORDERED: Propofol 10 MG/ML 20 ML BTL ONE (12:33)
[2023-08-24] MEDS ORDERED: fentaNYL 100 mcg/2 ml 50 MCG/ML VIAL ONE (12:57)
[2023-08-24 17:40] LABS: Hematocrit 24.7 % (38-53); Hemoglobin 8.6 g/dL (13.2-16.3)
[2023-08-24 18:18] LABS: Calcium 8.5 mg/dL (8.6-10.3); Potassium 4.3 mmol/L (3.5-5.0); eGFR CKD-EPI 87.2 (>60)
[2023-08-24 23:13] LABS: Hematocrit 23.1 % (38-53); Hemoglobin 8.1 g/dL (13.2-16.3)
[2023-08-25 06:04] LABS: ABS Basophils 0.1 10^3/uL (0.0-0.1); ABS Eosinophils 0.2 10^3/uL (0.0-0.5); ABS Lymphocytes 1.8 10^3/uL (1.0-4.8); ABS Monocytes 0.4 10^3/uL (0.0-1.1); ABS Neutrophils 3.6 10^3/uL (1.5-7.6); Eosinophil % 3.7 %; Hematocrit 24.5 % (38-53); Hemoglobin 8.6 g/dL (13.2-16.3); Lymphocyte % 29.2 %; Mean Corpuscular Hemoglobin 29.9 pg (27-33); Mean Corpuscular Hgb Conc 35.3 g/dL (31-36); Mean Corpuscular Volume 84.8 fL (80-97); Mean Platelet Volume 6.8 fL (7.5-11.2); Nucleated Red Blood Cells % 0.1 %/100WBC (0.0-0.8); Platelet Count 253 10^3/uL (150-450); Red Blood Count 2.89 10^6/uL (4.06-5.63); Red Cell Distribution Width 14.6 % (12-17)
[2023-08-25 06:20] LABS: Magnesium 1.7 mg/dL (1.9-2.7)
[2023-08-25] MEDS: Magnesium Sulfate 2 gm BAG 2 GM/50 ML BAG IVPB ONE (10:34)
[2023-08-25 14:29] LABS: Hemoglobin 8.8 g/dL (13.2-16.3)
[2023-08-25 21:49] LABS: Hematocrit 22.6 % (38-53)
[2023-08-26 06:40] LABS: Calcium 8.5 mg/dL (8.6-10.3); Creatinine, Serum 0.92 mg/dL (0.67-1.17); Magnesium 1.7 mg/dL (1.9-2.7); eGFR CKD-EPI 96.4 (>60)
[2023-08-26 06:42] LABS: Hematocrit 23.2 % (38-53); Hemoglobin 8.2 g/dL (13.2-16.3)
[2023-08-26] MEDS: HYDROmorphone 0.5 MG/0.5 ML SYRINGE IV SLOW PU PRN (14:35)
[2023-08-26 14:38] LABS: Hematocrit 23.1 % (38-53); Hemoglobin 8.2 g/dL (13.2-16.3)
[2023-08-26] MEDS: HYDROcodone/ACETAMIN 5/325 mg TAB PO PRN (20:44)
[2023-08-26 22:23] LABS: Hematocrit 22.1 % (38-53); Hemoglobin 7.7 g/dL (13.2-16.3)
[2023-08-27 05:42] LABS: ABS Basophils 0.1 10^3/uL (0.0-0.1); ABS Eosinophils 0.2 10^3/uL (0.0-0.5); ABS Lymphocytes 2.1 10^3/uL (1.0-4.8); ABS Monocytes 0.3 10^3/uL (0.0-1.1); ABS Neutrophils 3.3 10^3/uL (1.5-7.6); ABS Nucleated RBC 0.01 10^3/ul; Eosinophil % 3.9 %; Hematocrit 23.9 % (38-53); Hemoglobin 8.5 g/dL (13.2-16.3); Lymphocyte % 35.2 %; Mean Corpuscular Hemoglobin 30.3 pg (27-33); Mean Corpuscular Hgb Conc 35.6 g/dL (31-36); Mean Corpuscular Volume 85.3 fL (80-97); Nucleated Red Blood Cells % 0.1 %/100WBC (0.0-0.8); Platelet Count 248 10^3/uL (150-450); Red Cell Distribution Width 14.8 % (12-17)
[2023-08-27 06:13] LABS: Albumin 3.6 g/dL (3.2-5.2); Albumin/Globulin Ratio 1.7 (1-3); Calcium 8.7 mg/dL (8.6-10.3); Creatinine, Serum 0.96 mg/dL (0.67-1.17); Globulin 2.1 g/dL (2-4); Magnesium 1.6 mg/dL (1.9-2.7); Potassium 4.3 mmol/L (3.5-5.0); Total Bilirubin 0.4 mg/dL (0.2-1.0); Total Protein 5.7 g/dL (6.4-8.9); eGFR CKD-EPI 91.6 (>60)
[2023-08-27] MEDS: Magnesium Sulf 4 GM/100 ML IV 4,000 MG/100 ML BAG IVPB ONE (12:08)
[2023-08-27 18:34] LABS: Hematocrit 25.1 % (38-53); Hemoglobin 8.7 g/dL (13.2-16.3)
[2023-08-28 05:47] LABS: ABS Basophils 0.1 10^3/uL (0.0-0.1); ABS Eosinophils 0.2 10^3/uL (0.0-0.5); ABS Lymphocytes 1.5 10^3/uL (1.0-4.8); ABS Monocytes 0.3 10^3/uL (0.0-1.1); ABS Neutrophils 3.7 10^3/uL (1.5-7.6); ABS Nucleated RBC 0.01 10^3/ul; Eosinophil % 3.9 %; Hematocrit 23.3 % (38-53); Hemoglobin 8.2 g/dL (13.2-16.3); Lymphocyte % 25.9 %; Mean Corpuscular Hemoglobin 29.8 pg (27-33); Mean Corpuscular Volume 85.1 fL (80-97); Mean Platelet Volume 6.9 fL (7.5-11.2); Nucleated Red Blood Cells % 0.1 %/100WBC (0.0-0.8); Platelet Count 246 10^3/uL (150-450); Red Blood Count 2.74 10^6/uL (4.06-5.63); White Blood Count 5.8 10^3/uL (3.6-10.2)
[2023-08-28 06:40] LABS: Calcium 8.7 mg/dL (8.6-10.3); Creatinine, Serum 0.94 mg/dL (0.67-1.17); Magnesium 1.9 mg/dL (1.9-2.7); Potassium 4.2 mmol/L (3.5-5.0)
[2023-08-28] MEDS: Magnesium Sulfate IV 1GM/100ML 1 GM/100 ML BAG IV ONE (09:12)
[2023-08-28 10:06] VITALS: BP 134/74
[2023-08-30 08:26] LABS: Helicobacter pylori Result Not Detected; Specimen Source STOOL
== END 2023-08-28 12:10 | disposition home or self-care (01) | DRG 377 ==
LOC: EDHOLD 09:03 → ED 09:03 → SUATTDRO 17:17 → MED 20:29
PROVIDERS: ADMIT Student in an Organized Health Care Education/Training Program; ATTEND Internal Medicine
PROC: O.GIEGD (2023-08-24 12:30)